=== PATIENT | female | born 1950 | race Caucasian/White ===

== ENCOUNTER 2019-05-09 09:13 | Inpatient (IN) | payer MEDICARE, BC ==
[2019-05-09] MEDS ORDERED: SODIUM CHLORIDE 0.9% 1,000 ML IV STA (09:37)
[2019-05-09] MEDS ORDERED: ASPIRIN 81 MG PO STA (09:37)
[2019-05-09] MEDS ORDERED: DILTIAZEM DRIP BOLUS FROM BAG 1 MG SOLN IV ONE (09:37)
[2019-05-09] MEDS ORDERED: HEPARIN SODIUM,PORCINE 5,000 UNIT/ML 1 ML VIAL IV PRN (09:42)
[2019-05-09] MEDS ORDERED: HEPARIN SODIUM,PORCINE 5,000 UNIT/ML 1 ML VIAL IV ONE (09:42)
--- NOTE | 2019-05-09 09:42 | ED ---
Chest Pain HPI - General Chief Complaint: Chest Pain Stated Complaint: Chest pain Time Seen by Provider: 05/09/19 09:20 Source: patient, RN notes reviewed Mode of arrival: ambulatory Limitations: no limitations - History of Present Illness Initial Comments: This 68-year-old female with a history of atrial fibrillation in the past who states she had the onset is morning at about 7:30 of palpitations or elevated heart rate and gas-like chest pain. States the pain was about 7/10 pressure like. She had palpitations she states her past 3 or 4 days but this is worse this morning he does state that she has similar episode 2005 which was diagnosed as atrial fibrillation she states that was worsened today's episode. No other modifying factors no other complaints at this time she does take metoprolol and has not missed any doses. MD Complaint: chest pain, other - Related Data Home Medications Medication Instructions Recorded Confirmed Abatacept [Orencia Clickject] 125 mg SQ Q30D 05/09/19 05/09/19 Ibuprofen [Advil] 200 mg PO Q8HR PRN 05/09/19 05/09/19 Metoprolol Tartrate [Lopressor] 25 mg PO DAILY@1300 05/09/19 05/09/19 Allergies Allergy/AdvReac Type Severity Reaction Status Date / Time levofloxacin [From Levaquin] Allergy Unknown Verified 05/09/19 13:07 sulfamethoxazole Allergy Swelling Verified 05/09/19 13:07 [From Bactrim] trimethoprim [From Bactrim] Allergy Swelling Verified 05/09/19 13:07 Review of Systems ROS Statement: Those systems with pertinent positive or pertinent negative responses have been documented in the HPI. ROS Other: All systems not noted in ROS Statement are negative. EKG Findings - EKG Results: EKG: interpreted by CHANTELLE (Rapid atrial fibrillation rate 163 QRS 82 QT since QTC to 46/405 ST-T abnormalities noted on EKG) Past Medical History Past Medical History: Atrial Fibrillation, Rheumatoid Arthritis (RA) History of Any Multi-Drug Resistant Organisms: None Reported Past Surgical History: Section Additional Past Surgical History / Comment(s): L leg vein stripping Past Psychological History: No Psychological Hx Reported Smoking Status: Never smoker Past Alcohol Use History: Daily Past Drug Use History: None Reported General Exam - General Exam Comments Initial Comments: This is a well-developed well-nourished awake alert oriented 3 female Limitations: no limitations General appearance: alert, anxious Head exam: Present: atraumatic, normocephalic, normal inspection Eye exam: Present: normal appearance, PERRL, EOMI. Absent: scleral icterus, conjunctival injection, periorbital swelling ENT exam: Present: normal exam, mucous membranes moist Neck exam: Present: normal inspection, full ROM, other (No stridor JVD or bruits). Absent: tenderness, meningismus, lymphadenopathy Respiratory exam: Present: normal lung sounds bilaterally. Absent: respiratory distress, wheezes, rales, rhonchi, stridor Cardiovascular Exam: Present: tachycardia, irregular rhythm. Absent: systolic murmur, diastolic murmur, rubs, gallop, clicks GI/Abdominal exam: Present: soft, normal bowel sounds. Absent: distended, tenderness, guarding, rebound, rigid Extremities exam: Present: normal inspection, full ROM, normal capillary refill. Absent: tenderness, pedal edema, joint swelling, calf tenderness Back exam: Present: normal inspection Neurological exam: Present: alert, oriented X3, CN II-XII intact Psychiatric exam: Present: normal affect, normal mood Skin exam: Present: warm, dry, intact, normal color. Absent: rash Course Vital Signs 05/09/19 05/09/19 05/09/19 09:20 10:40 11:10 Temperature 98 F Pulse Rate 126 H 146 H 152 H Respiratory 18 18 15 Rate Blood Pressure 132/81 118/97 114/55 O2 Sat by Pulse 99 98 95 Oximetry 05/09/19 05/09/19 05/09/19 11:30 12:00 13:00 Temperature Pulse Rate 151 H 151 H 151 H Respiratory 19 15 17 Rate Blood Pressure 102/64 107/91 107/87 O2 Sat by Pulse 97 96 96 Oximetry - Reevaluation(s) Reevaluation #1: 05/09/19 13:51 Evaluation reveals some improvement in her heart rate that she still demonstrating A. fib RVR. I did discuss the findings with the patient and family patient will be admitted Chest Pain MDM - [facility] Imaging shows no definite acute findings. Patient does have A. fib RVR. Patient hasn't placed on appropriate medication. I did discuss case with Dr. Herrera. Patient will be admitted with cardiology consultation. He did state that chest pain has resolved from most part as he heart rate has improved somewhat Critical Care Time Critical Care Time: Yes Critical Care Time: 39 minutes of critical care time which includes initial presentation with history physical labs x-rays review of old charting was available multiple reevaluation the patient to response to therapy discussion with the admitting physician admission orders and documentation the above Disposition Clinical Impression: Rapid atrial fibrillation, Chest pain Disposition: ADMITTED IP TO THIS HOSP Condition: Fair Referrals: Guy Bowman MD [Primary Care Provider] - 1-2 days
--- NOTE | 2019-05-09 10:02 | XR ---
EXAMINATION TYPE: XR chest 2V DATE OF EXAM: 05/09/2019 HISTORY: dysrhythmia. REFERENCE: NONE. FINDINGS: There is some scarring or atelectasis at both lung bases. The heart is mildly enlarged. Ple ural spaces are clear. IMPRESSION: 1. MILD CARDIOMEGALY. 2. SCARRING VERSUS ATELECTASIS, BOTH LUNG BASES.
[2019-05-09 10:04] LABS: Basophils % (A) 1 %; Eosinophils # (A) 0.3 k/uL (0-0.7); Eosinophils % (A) 6 %; HGB 13.7 gm/dL (11.4-16.0); Lymphocytes # (A) 1.6 k/uL (1.0-4.8); Lymphocytes % (A) 34 %; MCH 29.5 pg (25.0-35.0); MCHC 31.9 g/dL (31.0-37.0); MCV 92.6 fL (80.0-100.0); Mean Platelet Volume 7.4; Monocytes # (A) 0.3 k/uL (0-1.0); Monocytes % (A) 7 %; Neutrophils # (A) 2.4 k/uL (1.3-7.7); Neutrophils % (A) 50 %; Platelet Count 236 k/uL (150-450); RBC 4.65 m/uL (3.80-5.40); RDW 13.1 % (11.5-15.5); WBC 4.8 k/uL (3.8-10.6)
[2019-05-09 10:11] LABS: INR 0.9 (<1.2); Partial Thromboplastin Time 22.7 sec (22.0-30.0); Prothrombin Time 9.6 sec (9.0-12.0)
[2019-05-09 10:25] LABS: ALT 27 U/L (9-52); AST 22 U/L (14-36); African American GFR (CKD) >90 (>60 ml/min/1.73 sqM); Albumin 4.2 g/dL (3.5-5.0); Alkaline Phosphatase 66 U/L (38-126); Anion Gap 10 mmol/L; Blood Urea Nitrogen 20 mg/dL (7-17); Calcium 9.8 mg/dL (8.4-10.2); Carbon Dioxide 22 mmol/L (22-30); Chloride 110 mmol/L (98-107); Creatine Kinase 136 U/L (30-135); Glucose 113 mg/dL (74-99); Magnesium 1.7 mg/dL (1.6-2.3); Non-African American GFR(CKD) >90 (>60 ml/min/1.73 sqM); Potassium 3.7 mmol/L (3.5-5.1); Sodium 142 mmol/L (137-145); Total Bilirubin 0.7 mg/dL (0.2-1.3); Total Protein 7.2 g/dL (6.3-8.2)
[2019-05-09] MEDS: DILTIAZEM 125 MG in SODIUM CHLORIDE 0.9% 100 ML IV SCH (10:29)
[2019-05-09] MEDS ORDERED: SODIUM CHLORIDE 0.9% 500 ML 500 ML IV ONE (10:30)
[2019-05-09] MEDS: HEPARIN SOD,PORK IN 0.45% NACL 25,000 UNIT in 0.45% NACL 1 250ML.BAG IV SCH (11:39)
[2019-05-09] MEDS ORDERED: NALOXONE 0.4 MG/ML 1 ML VIAL IV PRN (13:56)
[2019-05-09] MEDS ORDERED: IBUPROFEN 200 MG TAB PO PRN (13:57)
[2019-05-09] MEDS ORDERED: SODIUM CHLORIDE 0.9% 1,000 ML IV ONE (15:18)
[2019-05-09] MEDS ORDERED: ACETAMINOPHEN TAB 325 MG TAB PO PRN (15:19)
--- NOTE | 2019-05-09 15:23 | P.HPIM ---
History of Present Illness H&P Date: 05/09/19 Chief Complaint: Chest pain or heart racing The patient is a 68-year-old female with a past medical history of atrial fibrillation on beta won therapy, rheumatoid arthritis on IV Arencia infusions, GERD that presents to the ER via private vehicle with chief complaint of feeling like her heart is racing and chest pain. Apparently the patient woke up today and felt that her heart was pounding and racing, she had associated 7 out of 10 chest pressure without radiation. The patient also reported some lightheadedness and dizziness, but denied any syncopal symptoms. The patient denied any diaphoresis or shortness of breath. The patient reported that she w as in her usual state of health up until 2 weeks ago where she had a runny nose sore throat and sinus congestion, she reports episodes of palpitations over the last 2 days. The patient had a nonproductive cough she denies subjective fevers or chills, she reports episodes of pyrosis that is relieved by Tums. She reports to drinking 3 cups of coffee daily The patient reports a history of being in A. fib several years ago and was started on beta won therapy with metoprolol for which she notes compliance. In the ER she had admission labs CBC was normal PT INR was 9.6 and 0.9, serum sodium was 142 potassium is 3.7, BUN 20, creatinine 0.69, troponin was 0.026, TSH was 1.97. Chest x-ray showed mild cardiomegaly with scarring versus atelectasis EKG showed atrial fibrillation with RVR with a rate of 163 with some T-wave abnormalities. The patient was started on IV Cardizem and heparin and recommended for admission Review of Systems Pertinent positives per HPI, all other review of systems are otherwise negative Past Medical History Past Medical History: Atrial Fibrillation, Rheumatoid Arthritis (RA) Additional Past Medical History / Comment(s): AFIB 2007 History of Any Multi-Drug Resistant Organisms: None Reported Past Surgical History: Section Additional Past Surgical History / Comment(s): L leg vein stripping, foot surgery, left thumb surgery Past Anesthesia/Blood Transfusion Reactions: No Reported Reaction Past Psychological History: No Psychological Hx Reported, Depression Smoking Status: Never smoker Past Alcohol Use History: Occasional Past Drug Use History: None Reported - Past Family History Mother Family Medical History: Cancer Father Additional Family Medical History / Comment(s): gastrointestinal issues resulting in Medications and Allergies Home Medications Medication Instructions Recorded Confirmed Type Ibuprofen [Advil] 200 mg PO Q8HR PRN 05/09/19 05/09/19 History Metoprolol Tartrate [Lopressor] 25 mg PO DAILY@1300 05/09/19 05/09/19 History Allergies Allergy/AdvReac Type Severity Reaction Status Date / Time sulfamethoxazole Allergy Swelling Verified 05/09/19 13:07 [From Bactrim] trimethoprim [From Bactrim] Allergy Swelling Verified 05/09/19 13:07 levofloxacin [From Levaquin] AdvReac Unknown Verified 05/09/19 15:10 Physical Exam Vitals: Vital Signs Temp Pulse Pulse Resp BP BP Pulse Ox 05/09/19 14:18 98.5 F 87 18 99/75 95 05/09/19 14:00 135 H 14 85/68 97 05/09/19 13:30 156 H 13 95/80 95 05/09/19 13:00 151 H 17 107/87 96 05/09/19 12:00 151 H 15 107/91 96 05/09/19 11:30 151 H 19 102/64 97 05/09/19 11:10 152 H 15 114/55 95 05/09/19 10:40 146 H 18 118/97 98 05/09/19 09:20 98 F 126 H 18 132/81 99 Intake and Output 05/09/19 05/09/19 05/09/19 06:59 14:59 22:59 Intake Total 14.917 Balance 14.917 Intake: Intake, IV Titration 14.917 Amount Diltiazem 125 mg In 14.917 Sodium Chloride 0.9% 100 ml @ 5 MG/HR 5 mls/hr IV .Q24H [facility] Rx#:[id number] Other: Weight 77.111 kg Constitutional: No acute distress, conversant, pleasant Eyes: Anicteric sclerae, moist conjunctiva, no lid-lag, PERRLA ENMT: NC/AT,Oropharynx clear, no erythema, exudates Neck:Supple, FROM, no masses, or JVD, No carotid bruits; No thyromegaly Lungs: Clear to auscultation, Clear to percussion, Normal respiratory effort, no accessory muscle use Cardiovascular: Irregularly irregular, No murmurs, gallops, or rubs no peripheral edema Abdominal: Soft Nontender, nom distended, no guarding, no rebound or rigidity, Normoactive bowel sounds No hepatomegaly, No splenomegaly, No palpable mass No abdominal wall hernia noted Skin: Normal temperature, tone, texture, turgor, No induration No subcutaneous nodules, No rash, lesions, No ulcers Extremities:No digital cyanosis No clubbing, Pedal pulses intact and symmetrical Radial pulses intact and symmetrical Normal gait and station, No calf tenderness Psychiatric: Alert and oriented to person, place and time, Appropriate affect Intact judgement Neuro: Muscles Strength 5/5 in all 4 extremities, Sensation to light touch grossly present throughout, Cranial nerves II-XII grossly intact. No focal sensory deficits Results CBC & Chem 7: 05/09/19 09:44 05/09/19 09:44 Labs: Abnormal Lab Results - Last 24 Hours (Table) 05/09/19 Range/Units 09:44 Chloride 110 H (98-107) mmol/L BUN 20 H (7-17) mg/dL Glucose 113 H (74-99) mg/dL Creatine Kinase 136 H (30-135) U/L Thrombosis Risk Factor Assmnt - Choose All That Apply Any of the Below Risk Factors Present?: Yes Each Risk Factor Represents 2 Points: Age 61-74 years Thrombosis Risk Factor Assessment Total Risk Factor Score: 2 Thrombosis Risk Factor Assessment Level: Low Risk Assessment and Plan Assessment: Atrial fibrillation with RVR Chest pain Rheumatoid arthritis GERD Plan: The patient is placed in observation anticipate a less than 2 midnight stay with A. tomy with RVR with a rate of 165 after presenting with palpitations. We'll continue the patient's on IV Cardizem drip and IV heparin, the patient's blood p ressure is borderline we'll bolus with 1 L normal saline and continue the patient's orders, TSH is normal check echocardiogram with plans for cardiology consultation. Continue chest pain orders sequential troponins, aspirin check lipid panel in the morning. We'll continue to monitor her clinical course closely. CODE STATUS: Full code Discussed plan of care with: Patient and Medical decision maker: Prophylaxis: On IV heparin and oral Protonix
[2019-05-09] MEDS: SODIUM CHLORIDE 0.9% 1,000 ML IV SCH (15:37)
[2019-05-09] MEDS: ATORVASTATIN 80 MG TAB PO SCH (20:56)
[2019-05-09] MEDS: METOPROLOL TARTRATE 50 MG TAB PO SCH (20:56)
[2019-05-10] MEDS: DILTIAZEM 125 MG in SODIUM CHLORIDE 0.9% 100 ML IV SCH (02:02)
[2019-05-10] MEDS: SODIUM CHLORIDE 0.9% 1,000 ML IV SCH ×2 (02:30→12:03)
[2019-05-10 06:23] LABS: Basophils % (A) 1 %; Eosinophils # (A) 0.2 k/uL (0-0.7); Eosinophils % (A) 4 %; HCT 34.3 % (34.0-46.0); HGB 11.2 gm/dL (11.4-16.0); Lymphocytes % (A) 38 %; MCH 30.3 pg (25.0-35.0); MCHC 32.6 g/dL (31.0-37.0); Mean Platelet Volume 7.6; Monocytes # (A) 0.3 k/uL (0-1.0); Monocytes % (A) 6 %; Neutrophils # (A) 2.6 k/uL (1.3-7.7); Neutrophils % (A) 49 %; Platelet Count 188 k/uL (150-450); RBC 3.69 m/uL (3.80-5.40); RDW 13.3 % (11.5-15.5); WBC 5.3 k/uL (3.8-10.6)
[2019-05-10] MEDS: PANTOPRAZOLE 40 MG TABLET PO SCH (06:29)
[2019-05-10 06:34] LABS: Cholesterol 144 mg/dL (<200); HDL Cholesterol 54 mg/dL (40-60); LDL Cholesterol,Calculated 75 mg/dL (0-99); Triglycerides 76 mg/dL (<150)
[2019-05-10] MEDS: METOPROLOL TARTRATE 50 MG TAB PO SCH ×2 (08:33→22:26)
[2019-05-10] MEDS: HEPARIN SOD,PORK IN 0.45% NACL 25,000 UNIT in 0.45% NACL 1 250ML.BAG IV SCH (08:37)
[2019-05-10] MEDS ORDERED: ASPIRIN 81 MG PO SCH (09:00)
[2019-05-10] MEDS: APIXABAN 5 MG TAB PO SCH ×2 (12:02→22:26)
[2019-05-10] MEDS ORDERED: METOPROLOL TARTRATE 25 MG TAB PO SCH (13:00)
--- NOTE | 2019-05-10 13:16 | P.PN ---
Subjective Progress Note Date: 05/10/19 Patient is seen and examined at bedside doing well denies any sick feelings of palpitations, converted to normal sinus rhythm overnight, echocardiogram ordered pending for tomorrow. The troponins trended up to 0.237 and 0.299. Blood pressure is stable Objective - Vital Signs Vital signs: Vital Signs Temp 97.9 F 05/10/19 04:55 Pulse 64 05/10/19 04:55 Resp 20 05/10/19 04:55 BP 122/74 05/10/19 04:55 Pulse Ox 95 05/10/19 04:55 Intake & Output 05/09/19 05/10/19 05/10/19 18:59 06:59 18:59 Intake Total 712.274 6387.083 173.505 Balance 344.245 9559.083 173.505 Weight 77.111 kg 78.3 kg Intake: IV 1359 Diltiazem 125 mg In 40 Sodium Chloride 0.9% 100 ml @ 5 MG/HR 5 mls/hr IV .Q24H [facility] Rx#:[id number] Sodium Chloride 0.9% 1, 320 000 ml @ 80 mls/hr IV . [id number] [facility] Rx#:[id number] Sodium Chloride 0.9% 1, 999 000 ml @ 999 mls/hr IV . Q1H1M [facility] Rx#:[id number] Intake, IV Titration 70.127 110.083 173.505 Amount Diltiazem 125 mg In 14.917 110.083 Sodium Chloride 0.9% 100 ml @ 5 MG/HR 5 mls/hr IV .Q24H [facility] Rx#:[id number] Heparin Sod,Pork in 0.45% 55.21 173.505 NaCl 25,000 unit In 0.45 % NaCl 1 250ml.bag @ 12 UNITS/KG/HR 9.253 mls/hr IV .Q24H [facility] Rx#: [id number] Oral 240 120 Other: Voiding Method Toilet # Voids 1 - Exam Constitutional: No acute distress, conversant, pleasant Eyes: Anicteric sclerae, moist conjunctiva, no lid-lag, PERRLA ENMT: NC/AT,Oropharynx clear, no erythema, exudates Neck:Supple, FROM, no masses, or JVD, No carotid bruits; No thyromegaly Lungs: Clear to auscultation, Clear to percussion, Normal respiratory effort, no accessory muscle use Cardiovascular: Heart regular in rate and rhythm, No murmurs, gallops, or rubs no peripheral edema Abdominal: Soft Nontender, nom distended, no guarding, no rebound or rigidity, Normoactive bowel sounds No hepatomegaly, No splenomegaly, No palpable mass No abdominal wall hernia noted Skin: Normal temperature, tone, texture, turgor, No induration No subcutaneous nodules, No rash, lesions, No ulcers Extremities:No digital cyanosis No clubbing, Pedal pulses intact and symmetrical Radial pulses intact and symmetrical Normal gait and station, No calf tenderness Psychiatric: Alert and oriented to person, place and time, Appropriate affect Intact judgement Neuro: Muscles Strength 5/5 in all 4 extremities, Sensation to light touch grossly present throughout, Cranial nerves II-XII grossly intact. No focal sensory deficits - Labs CBC & Chem 7: 05/10/19 05:54 05/09/19 09:44 Labs: Abnormal Lab Results - Last 24 Hours (Table) 05/09/19 05/09/19 05/09/19 Range/Units 09:44 16:13 16:13 RBC (3.80-5.40) m/uL Hgb (11.4-16.0) gm/dL APTT 31.7 H (22.0-30.0) sec Chloride 110 H (98-107) mmol/L BUN 20 H (7-17) mg/dL Glucose 113 H (74-99) mg/dL Creatine Kinase 136 H (30-135) U/L Troponin I 0.237 H* (0.000-0.034) ng/mL 05/09/19 05/09/19 05/10/19 Range/Units 20:42 23:10 05:54 RBC 3.69 L (3.80-5.40) m/uL Hgb 11.2 L (11.4-16.0) gm/dL APTT 69.8 H (22.0-30.0) sec Chloride (98-107) mmol/L BUN (7-17) mg/dL Glucose (74-99) mg/dL Creatine Kinase (30-135) U/L Troponin I 0.299 H* (0.000-0.034) ng/mL 12/08/19 Range/Units 05:54 RBC (3.80-5.40) m/uL Hgb (11.4-16.0) gm/dL APTT 64.5 H (22.0-30.0) sec Chloride (98-107) mmol/L BUN (7-17) mg/dL Glucose (74-99) mg/dL Creatine Kinase (30-135) U/L Troponin I (0.000-0.034) ng/mL Assessment and Plan Assessment: Atrial fibrillation with RVR * Converted to normal sinus rhythm * Continue with beta won metoprolol, initiated on DOAC with Eliquis * TSH normal echocardiogram pending Chest pain * Troponins elevated as noted * Continue with aspirin, statin therapy * Cardiology consult pending, possibly needing heart catheterization during this hospitalization Rheumatoid arthritis * We will resume weekly (infusions outpatient GERD * Continue PPI therapy Disposition * Anticipated discharge tomorrow
--- NOTE | 2019-05-10 14:04 | CONS ---
CONSULTATION Mrs. Knox is a 68-year-old female who is seen for cardiac evaluation and atrial fibrillation. This patient gives a history that yesterday morning she was sitting and she suddenly felt her heart was racing, felt heart palpitations and then she had some mild shortness of breath and chest pressure. She did not have any pleuritic chest pain. Did not have any sweating. The patient gives a history that she had been having some palpitations for last 3-4 days but it got worse this morning. She does have a past history of atrial fibrillation in 2007. She is not on any blood thinner. The patient was initially found to be in atrial fibrillation with a rapid ventricular response. She was started on Cardizem drip and subsequently converted to the normal sinus rhythm. The patient denies any history of diabetes, hypertension, angina. There is no previous history of myocardial infarction. The patient usually has 2 or 3 cups of coffee. Denies any history of thyroid problems. HOME MEDICATIONS: Included Orencia, Advil, metoprolol. PAST MEDICAL HISTORY: Includes a history of atrial fibrillation, rheumatoid arthritis, and . PHYSICAL EXAMINATION: At present reveals a 68-year-old female who does not appear to be in any acute distress at present. In the emergency room, patient's heart rate was in the range of 130-150. Oxygen saturation was 98%. Respiratory rate was 18. The patient is comfortable now. Heart rate is 60 per minute, blood pressure is 128/64 mmHg. HEENT examination is negative. Neck is supple. There is no increase in jugular venous pressure. Both the carotid pulses are felt. There is no bruit. Chest is symmetrical. Heart the PMI is not felt. First and second heart sounds are normal. Lungs are clinically clear to auscultation and percussion. Abdomen is negative. Extremities: Peripheral pulsations are 2+. Initial EKG showed evidence of atrial fibrillation with a rapid ventricular response and ST-T changes possibly secondary to atrial fibrillation with RVR. Repeat EKG is normal. The patient had a minimally elevated troponin of 0.2 and 0.29. TSH is 1.97. The patient's chest x-ray is normal. FINAL IMPRESSION: This patient came with paroxysmal atrial fibrillation with rapid ventricular response. He is now converted to the normal sinus rhythm. Patient did not have any symptoms suggestive of acute coronary syndrome. There is a minimal elevation in the troponin which could be secondary to atrial fibrillation with RVR. We will continue the patient on metoprolol, Eliquis 5 mg b.i.d. is started for the stroke prevention. Echo and Doppler study will be done. If the patient remains stable, she can be discharged home tomorrow. We will recommend to have her stress test as an outpatient. HEMANTH / PRADEEPN: [id number] /
[2019-05-10] MEDS: ATORVASTATIN 80 MG TAB PO SCH (22:26)
[2019-05-11 06:22] LABS: Basophils % (A) 1 %; Eosinophils # (A) 0.4 k/uL (0-0.7); Eosinophils % (A) 6 %; HGB 11.7 gm/dL (11.4-16.0); Lymphocytes # (A) 1.9 k/uL (1.0-4.8); Lymphocytes % (A) 34 %; MCH 30.3 pg (25.0-35.0); MCHC 32.6 g/dL (31.0-37.0); Mean Platelet Volume 8.9; Monocytes # (A) 0.4 k/uL (0-1.0); Monocytes % (A) 7 %; Neutrophils # (A) 2.9 k/uL (1.3-7.7); Neutrophils % (A) 50 %; Platelet Count 204 k/uL (150-450); RBC 3.87 m/uL (3.80-5.40); RDW 13.2 % (11.5-15.5); WBC 5.7 k/uL (3.8-10.6)
[2019-05-11] MEDS: SODIUM CHLORIDE 0.9% 1,000 ML IV SCH (06:40)
[2019-05-11] MEDS: PANTOPRAZOLE 40 MG TABLET PO SCH (06:42)
[2019-05-11 06:45] VITALS: RESP 18
[2019-05-11] MEDS: METOPROLOL TARTRATE 50 MG TAB PO SCH (09:05)
[2019-05-11] MEDS: APIXABAN 5 MG TAB PO SCH (09:05)
[2019-05-11] MEDS: DILTIAZEM 125 MG in SODIUM CHLORIDE 0.9% 100 ML IV SCH (09:05)
--- NOTE | 2019-05-11 10:43 | ECHOF ---
Referral Reason:afib with rvr MEASUREMENTS -------- HEIGHT: 170.2 cm WEIGHT: 77.1 kg BP: RVIDd: 2.9 cm (< 3.3) IVSd: 1.0 cm (0.6 - 1.1) LVIDd: 3.6 cm (3.9 - 5.3) LVPWd: 1.4 cm (0.6 - 1.1) IVSs: 1.9 cm LVIDs: 1.6 cm LVPWs: 1.6 cm LAESV Index (A-L): 26.12 ml/m Ao Diam: 3.2 cm (2.0 - 3.7) AV Cusp: 2.0 cm (1.5 - 2.6) LA Diam: 3.0 cm (2.7 - 3.8) MV EXCURSION: 13.536 mm (> 18.000) MV EF SLOPE: 98 mm/s (70 - 150) EPSS: 1.1 cm MV E Branden: 0.94 m/s MV DecT: 173 ms MV A Branden: 0.56 m/s MV E/A Ratio: 1.68 RAP: 20.00 mmHg RVSP: 47.77 mmHg TAPSE: 31.58 mm FINDINGS -------- Sinus rhythm. This was a technically good study. The left ventricular size is normal. There is mild concentric left ventricular hypertrophy. Overa ll left ventricular systolic function is normal with, an EF between 55 - 60 %. The diastolic fillin g pattern is normal for the age of the patient 11.97. The right ventricle is normal in size. The right ventricular systolic function is normal. The left atrial size is normal. Normal LA size by volume 22+/-6 ml/m2. The right atrial size is normal. The aortic valve is trileaflet and appears structurally normal. The mitral valve is normal. Moderate mitral regurgitation is present. The tricuspid valve appears structurally normal. [id number] tricuspid regurgitation present. There is mild to moderate pulmonary hypertension. The right ventricular systolic pressure, as sally sured by Doppler, is 47.77mmHg. There is no pulmonic regurgitation present. 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 There is no pericardial effusion. CONCLUSIONS -------- 1. Sinus rhythm. 2. This was a technically good study. 3. The left ventricular size is normal. 4. There is mild concentric left ventricular hypertrophy. 5. Overall left ventricular systolic function is normal with, an EF between 55 - 60 %. 6. The diastolic filling pattern is normal for the age of the patient 11.97 7. The right ventricle is normal in size. 8. The right ventricular systolic function is normal. 9. The left atrial size is normal. 10. Normal LA size by volume 22+/-6 ml/m2. 11. The right atrial size is normal. 12. The aortic valve is trileaflet and appears structurally normal. 13. The mitral valve is normal. 14. Moderate mitral regurgitation is present. 15. The tricuspid valve appears structurally normal. 16. [id number] tricuspid regurgitation present. 17. There is mild to moderate pulmonary hypertension. 18. The right ventricular systolic pressure, as measured by Doppler, is 47.77mmHg. 19. There is no pulmonic regurgitation present. 20. 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 21. The inferior vena cava is dilated with no significant inspiratory collapse which is consistent es timated right atrial pressure of >20 mmHg. 22. There is no pericardial effusion. SUBWAY TRAIN DRIVER: Emily Morris RDCS
[2019-05-11 11:10] VITALS: TEMP 97
[2019-05-11 13:00] VITALS: BP 173/82; PULSE 63
--- NOTE | 2019-05-11 13:10 | PN ---
PROGRESS NOTE This patient was admitted with atrial fibrillation. The patient is doing well. Remains in normal sinus rhythm. Denies any chest pain or shortness of breath. Patient's echocardiogram reveals normal left ventricular systolic function. Blood pressure is 140/72 mmHg. First and second heart sounds are normal. Lungs are clinically clear to auscultation and percussion. The patient will be discharged home on Eliquis and Lipitor and we will follow up with a stress test as outpatient. MMODL / IJN: [id number] /
--- NOTE | 2019-05-11 15:46 | P.DS ---
Providers Date of admission: 05/09/19 13:56 Attending physician: Nayana Kee DO Consults: 05/09/19 13:56 Consult Physician Routine Consulting Provider: Yoly Mendez Consult Reason/Comments: Rapid atrial fibrillation, chest pain Do you want consulting provider notified?: Yes Primary care physician: Guy Bowman Hospital Course: Discharge date: 05/11/2019 Admission diagnosis palpitations and chest pain Discharge diagnosis 1. Paroxysmal atrial fibrillation with RVR 2. Chest pain except slightly. 3.Elevated troponin Consultants: Dr. Hardy from cardiology Studies done: Echocardiogram showing EF of 55% without significant bilateral abnormalities Normal TSH History of present illness: This is a very pleasant 68-year-old female who has history of migraines and remote history of atrial fibrillation. Patient was in critical state of health when suddenly developed palpitations and chest discomfort for shortness of breath. She came to emergency department if A. FIB with RVR. Patient was started on Cardizem drip and heparin drip and admitted for further lotion. Patient was admitted for further management Hospital course. With above treatment patient converted to normal sinus rhythm. Her general blood work was without significant abnormalities. Her troponin showed elevation of 0.227 and 0.299. With conversion to normal sinus rhythm all patient's symptoms resolved. Cardiology evaluated the patient. TSH was normal echocardiogram with preserved EF no significant valvular abnormalities. Patient was transitioned to oral metoprolol 50 mg twice a day and started on Eliquis. She was also started on Lipitor as well. On the day of discharge she was doing very well and remained in normal sinus rhythm cardiology cleared the patient for discharge Discharge medications: Eliquis 5 mg twice a day Metoprolol 50 mg twice a day Atorvastatin 40 mg daily Tylenol when necessary for headaches I had a detailed discussion with the patient her and explained the kelli ent cannot be on any NSAIDs anymore she used to have a habits to take Motrin for her headaches. She will continue with effusions for her rheumatoid arthritis otherwise. She will follow-up with cardiology service in 2 weeks and primary care physician in a few days. On the examination physical exam showed that the lungs were clear to auscultation, cardiovascular was regular rhythm and rate without any significant murmurs, abdomen soft nontender nondistended, peripheral extremities without any peripheral edema 40 minutes was spent on this discharge Patient Condition at Discharge: Good Plan - Discharge Summary Discharge Rx Participant: No New Discharge Prescriptions: New Apixaban [Eliquis] 5 mg PO BID #60 tab Rosuvastatin Calcium [Ezallor Sprinkle] 40 mg PO DAILY #30 cap.sprink Metoprolol Tartrate [Lopressor] 50 mg PO BID #60 tab Discontinued Ibuprofen [Advil] 200 mg PO Q8HR PRN PRN Reason: Pain Metoprolol Tartrate [Lopressor] 25 mg PO DAILY@1300 Discharge Medication List Apixaban [Eliquis] 5 mg PO BID #60 tab 05/11/19 [Rx] Metoprolol Tartrate [Lopressor] 50 mg PO BID #60 tab 05/11/19 [Rx] Rosuvastatin Calcium [Ezallor Sprinkle] 40 mg PO DAILY #30 cap.sprink 05/11/19 [Rx] Follow up Appointment(s)/Referral(s): Guy Bowman MD [Primary Care Provider] - 05/15/19 1:45 pm (Saturday) Won Hardy MD [STAFF PHYSICIAN] - 1 Week (Spoke to hospital receptionist. Office will call with appointment time) Patient Instructions/Handouts: A-fib (Atrial Fibrillation) (DC), Safe Use of Anticoagulants (DC) Activity/Diet/Wound Care/Special Instructions: Call and request a benefits investigation regarding Eliquis cost. Discharge Disposition: HOME SELF-CARE
== END 2019-05-11 16:28 | disposition home or self-care (01) | DRG 310 ==
LOC: EC 09:13 → 3SCARD 13:56
PROVIDERS: ADMIT Internal Medicine; ATTEND Internal Medicine
DX: I48.0 Paroxysmal atrial fibrillation (principal); R07.89 Other chest pain; R79.89 Other specified abnormal findings of blood chemistry; K21.9 Gastro-esophageal reflux disease without esophagitis; M06.9 Rheumatoid arthritis, unspecified; Z79.899 Other long term (current) drug therapy; Z86.69 Personal history of other diseases of the nervous system and sense organs; Z98.891 History of uterine scar from previous surgery; Z98.890 Other specified postprocedural states; Z88.1 Allergy status to other antibiotic agents; Z88.2 Allergy status to sulfonamides
CPT/HCPCS: 36415; 71046; 80053; 80061; 82550; 83735; 84443; 84484; 85025; 85610; 85730; 93005; 93306; 96365; 96366; 96368; 96376; 99291

== ENCOUNTER 2021-02-09 22:35 | Emergency (ER) | payer MEDICARE, BC ==
[2021-02-09 23:29] LABS: Basophils % (A) 1 %; Eosinophils # (A) 0.2 k/uL (0-0.7); Eosinophils % (A) 3 %; HCT 40.3 % (34.0-46.0); HGB 13.7 gm/dL (11.4-16.0); Lymphocytes # (A) 1.7 k/uL (1.0-4.8); Lymphocytes % (A) 25 %; MCH 31.9 pg (25.0-35.0); MCV 93.9 fL (80.0-100.0); Mean Platelet Volume 8.5; Monocytes # (A) 0.4 k/uL (0-1.0); Monocytes % (A) 5 %; Neutrophils # (A) 4.4 k/uL (1.3-7.7); Neutrophils % (A) 65 %; Platelet Count 193 k/uL (150-450); RDW 12.7 % (11.5-15.5); WBC 6.8 k/uL (3.8-10.6)
--- NOTE | 2021-02-09 23:29 | ED ---
General Adult HPI - General Chief complaint: Arrhythmia/Palpitations Stated complaint: not feeling well Time Seen by Provider: 02/09/21 23:03 Source: patient Mode of arrival: wheelchair Limitations: no limitations - History of Present Illness Initial comments: This patient is a 70-year-old woman who presents with a constellation of symptoms is been going on since the morning. She states she has not been feeling well all day. She noticed that her blood pressure has also been running higher than usual. She checked it multiple times today including the last time just prior to coming here and it was 170/90. Patient states that by not feeling well she noticed she was having some left flank pain. It did seem to move around to the left lower quadrant later in the day. When she had noted the pain she took some Keflex that she had been prescribed 2 weeks ago for urinary tract infection. Patient denies having dysuria though she did have some hesitancy earlier. No hematuria noted. She has not had fever or chills. No chest pain or dyspnea though tonight she did note she had some palpitations when she had walked outside. Those have resolved by the time she has arrived here. Onset/Timin -: days(s) Location: left (Flank) Radiation: other (Groin) Quality: dull Consistency: intermittent Improves with: none Worsens with: none - Related Data Home Medications Medication Instructions Recorded Confirmed Acetaminophen Tab [Tylenol Tab] 500 mg PO Q6H PRN 02/09/21 02/09/21 Ergocalciferol (Vitamin D2) 1,250 mcg PO WEEKLY 02/09/21 02/09/21 [Drisdol (50,000 Iu)] Estradiol Cream [Estrace Cream 1 gm VAGINAL DAILY 02/09/21 02/09/21 0.01%] Rosuvastatin Calcium [Crestor] 5 mg PO DAILY 02/09/21 02/09/21 Previous Rx's Medication Instructions Recorded Apixaban [Eliquis] 5 mg PO BID #60 tab 05/11/19 Metoprolol Tartrate [Lopressor] 50 mg PO BID #60 tab 05/11/19 Allergies Allergy/AdvReac Type Severity Reaction Status Date / Time sulfamethoxazole Allergy Swelling Verified 02/09/21 23:25 [From Bactrim] trimethoprim [From Bactrim] Allergy Swelling Verified 02/09/21 23:25 levofloxacin [From Levaquin] AdvReac Unknown Verified 02/09/21 23:25 Review of Systems ROS Statement: Those systems with pertinent positive or pertinent negative responses have been documented in the HPI. ROS Other: All systems not noted in ROS Statement are negative. Constitutional: Denies: fever, chills, weakness Respiratory: Denies: cough, dyspnea Cardiovascular: Reports: palpitations. Denies: chest pain, edema, syncope Gastrointestinal: Reports: as per HPI, abdominal pain. Denies: nausea, vomiting, diarrhea, constipation Genitourinary: Denies: dysuria, frequency, hematuria Musculoskeletal: Denies: back pain Skin: Denies: rash Neurological: Denies: headache, weakness, numbness Psychiatric: Reports: anxiety Past Medical History Past Medical History: Atrial Fibrillation, Hypertension, Rheumatoid Arthritis (RA) Additional Past Medical History / Comment(s): AFIB 2008,thoracoabdominal aortic aneurysm History of Any Multi-Drug Resistant Organisms: None Reported Past Surgical History: Section Additional Past Surgical History / Comment(s): L leg vein stripping, foot surgery, left thumb surgery Past Anesthesia/Blood Transfusion Reactions: No Reported Reaction Past Psychological History: No Psychological Hx Reported, Depression Smoking Status: Never smoker Past Alcohol Use History: Occasional Past Drug Use History: None Reported - Past Family History Mother Family Medical History: Cancer Father Additional Family Medical History / Comment(s): gastrointestinal issues resulting in General Exam Limitations: no limitations General appearance: alert, in no apparent distress Head exam: Present: atraumatic, normocephalic Eye exam: Present: normal appearance. Absent: scleral icterus, conjunctival injection ENT exam: Present: normal oropharynx Neck exam: Present: normal inspection Respiratory exam: Present: normal lung sounds bilaterally. Absent: respiratory distress, wheezes, rales, rhonchi, stridor Cardiovascular Exam: Present: regular rate, normal rhythm, normal heart sounds. Absent: systolic murmur, diastolic murmur, rubs, gallop GI/Abdominal exam: Present: soft. Absent: distended, tenderness, guarding, lynne ound, rigid, mass, pulsatile mass Extremities exam: Present: normal inspection, normal capillary refill. Absent: pedal edema, calf tenderness Back exam: Present: normal inspection, CVA tenderness (L). Absent: CVA tenderness (R) Neurological exam: Present: alert Skin exam: Present: warm, dry, intact, normal color. 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30 (3.80-5.40) m/uL Hgb 13.7 (11.4-16.0) gm/dL Hct 40.3 (34.0-46.0) % MCV 93.9 (80.0-100.0) fL MCH 31.9 (25.0-35.0) pg MCHC 34.0 (31.0-37.0) g/dL RDW 12.7 (11.5-15.5) % Plt Count 193 (150-450) k/uL MPV 8.5 Neutrophils % 65 % Lymphocytes % 25 % Monocytes % 5 % Eosinophils % 3 % Basophils % 1 % Neutrophils # 4.4 (1.3-7.7) k/uL Lymphocytes # 1.7 (1.0-4.8) k/uL Monocytes # 0.4 (0-1.0) k/uL Eosinophils # 0.2 (0-0.7) k/uL Basophils # 0.0 (0-0.2) k/uL PT 10.1 (9.0-12.0) sec INR 0.9 (<1.2) APTT 22.4 (22.0-30.0) sec Sodium 138 (137-145) mmol/L Potassium 3.9 (3.5-5.1) mmol/L Chloride 108 H (98-107) mmol/L Carbon Dioxide 21 L (22-30) mmol/L Anion Gap 9 mmol/L BUN 15 (7-17) mg/dL Creatinine 0.64 (0.52-1.04) mg/dL Est GFR (CKD-EPI)AfAm >90 (>60 ml/min/1.73 sqM) Est GFR (CKD-EPI)NonAf >90 (>60 ml/min/1.73 sqM) Glucose 104 H (74-99) mg/dL Calcium 9.8 (8.4-10.2) mg/dL Magnesium 1.9 (1.6-2.3) mg/dL Total Bilirubin 0.4 (0.2-1.3) mg/dL AST 22 (14-36) U/L ALT 15 (4-34) U/L Alkaline Phosphatase 70 (38-126) U/L Troponin I (0.000-0.034) ng/mL Total Protein 7.0 (6.3-8.2) g/dL Albumin 4.2 (3.5-5.0) g/dL TSH 1.400 (0.465-4.680) mIU/L Urine Color Urine Appearance (Clear) Urine pH (5.0-8.0) Ur Specific [place] (1.001-1.035) Urine Protein (Negative) Urine Glucose (UA) (Negative) Urine Ketones (Negative) Urine Blood (Negative) Urine Nitrite (Negative) Urine Bilirubin (Negative) Urine Urobilinogen (<2.0) mg/dL Ur Leukocyte Esterase (Negative) Urine RBC (0-5) /hpf Urine WBC (0-5) /hpf Ur Squamous Epith Cells (0-4) /hpf 02/09/21 02/10/21 Range/Units 23:15 00:00 WBC (3.8-10.6) k/uL RBC (3.80-5.40) m/uL Hgb (11.4-16.0) gm/dL Hct (34.0-46.0) % MCV (80.0-100.0) fL MCH (25.0-35.0) pg MCHC (31.0-37.0) g/dL RDW (11.5-15.5) % Plt Count (150-450) k/uL MPV Neutrophils % % Lymphocytes % % Monocytes % % Eosinophils % % Basophils % % Neutrophils # (1.3-7.7) k/uL Lymphocytes # (1.0-4.8) k/uL Monocytes # (0-1.0) k/uL Eosinophils # (0-0.7) k/uL Basophils # (0-0.2) k/uL PT (9.0-12.0) sec INR (<1.2) APTT (22.0-30.0) sec Sodium (137-145) mmol/L Potassium (3.5-5.1) mmol/L Chloride (98-107) mmol/L Carbon Dioxide (22-30) mmol/L Anion Gap mmol/L BUN (7-17) mg/dL Creatinine (0.52-1.04) mg/dL Est GFR (CKD-EPI)AfAm (>60 ml/min/1.73 sqM) Est GFR (CKD-EPI)NonAf (>60 ml/min/1.73 sqM) Glucose (74-99) mg/dL Calcium (8.4-10.2) mg/dL Magnesium (1.6-2.3) mg/dL Total Bilirubin (0.2-1.3) mg/dL AST (14-36) U/L ALT (4-34) U/L Alkaline Phosphatase (38-126) U/L Troponin I <0.012 (0.000-0.034) ng/mL Total Protein (6.3-8.2) g/dL Albumin (3.5-5.0) g/dL TSH (0.465-4.680) mIU/L Urine Color Colorless Urine Appearance Clear (Clear) Urine pH 6.5 (5.0-8.0) Ur Specific [place] 1.005 (1.001-1.035) Urine Protein Negative (Negative) Urine Glucose (UA) Negative (Negative) Urine Ketones Negative (Negative) Urine Blood Large H (Negative) Urine Nitrite Negative (Negative) Urine Bilirubin Negative (Negative) Urine Urobilinogen <2.0 (<2.0) mg/dL Ur Leukocyte Esterase Negative (Negative) Urine RBC 30 H (0-5) /hpf Urine WBC <1 (0-5) /hpf Ur Squamous Epith Cells 1 (0-4) /hpf Disposition Clinical Impression: Palpitations Disposition: HOME SELF-CARE Condition: Good Instructions (If sedation given, give patient instructions): Heart Palpitations (ED) Is patient prescribed a controlled substance at d/c from ED?: No Referrals: Darren Deal MD [Primary Care Provider] - 1-2 days
[2021-02-09 23:47] LABS: INR 0.9 (<1.2); Partial Thromboplastin Time 22.4 sec (22.0-30.0); Prothrombin Time 10.1 sec (9.0-12.0)
--- NOTE | 2021-02-09 23:53 | XR ---
EXAMINATION TYPE: XR chest 2V DATE OF EXAM: 02/09/2021 COMPARISON: 05/09/2019 HISTORY: Dysrhythmia TECHNIQUE: 2 views FINDINGS: There is no heart failure nor confluent pneumonic infiltrate. There is small linear density at the lung bases. There are no hilar masses. Mediastinum is normal. There are chest leads. IMPRESSION: Mild subsegmental atelectasis at the lung bases without change. Normal heart.
[2021-02-09 23:56] LABS: ALT 15 U/L (4-34); AST 22 U/L (14-36); African American GFR (CKD) >90 (>60 ml/min/1.73 sqM); Albumin 4.2 g/dL (3.5-5.0); Alkaline Phosphatase 70 U/L (38-126); Anion Gap 9 mmol/L; Blood Urea Nitrogen 15 mg/dL (7-17); Calcium 9.8 mg/dL (8.4-10.2); Carbon Dioxide 21 mmol/L (22-30); Chloride 108 mmol/L (98-107); Glucose 104 mg/dL (74-99); Magnesium 1.9 mg/dL (1.6-2.3); Non-African American GFR(CKD) >90 (>60 ml/min/1.73 sqM); Potassium 3.9 mmol/L (3.5-5.1); Sodium 138 mmol/L (137-145); Total Bilirubin 0.4 mg/dL (0.2-1.3)
[2021-02-10 00:23] VITALS: RESP 18
[2021-02-10 00:54] LABS: Appearance,Urine Clear (Clear); Bilirubin,Urine Negative (Negative); Blood,Urine Large (Negative); Color,Urine Colorless; Glucose,Urine (UA) Negative (Negative); Ketones,Urine Negative (Negative); Leukocyte Esterase,Urine Negative (Negative); Nitrite,Urine Negative (Negative); PH, Urine 6.5 (5.0-8.0); Protein,Urine Negative (Negative); RBC,Urine 30 /hpf (0-5); Specific Gravity,Urine 1.005 (1.001-1.035); Squamous Epithelial Cell,Urine 1 /hpf (0-4); Urobilinogen,Urine <2.0 mg/dL (<2.0); WBC,Urine <1 /hpf (0-5)
--- NOTE | 2021-02-10 01:40 | CT ---
EXAMINATION TYPE: CT abdomen pelvis wo con DATE OF EXAM: 02/10/2021 COMPARISON: 01/06/2010 HISTORY: r/o renal stone. prior w/ contrast on PACS. CT DLP: 514.8 mGycm Automated exposure control for dose reduction was used. Images obtained from the diaphragm to the floor the pelvis with no contrast. There is some mild atelectasis at the lung bases. Heart is enlarged. There is no pericardial effusion . Stomach is intact. Liver spleen pancreas appear intact. The bile ducts are not dilated. Gallbladder has normal size. There are small calculi in the dependent gallbladder. There is no adrenal mass. Kidneys have normal size. There are left-sided renal parapelvic cysts. Uret ers are not dilated. There is no retroperitoneal adenopathy. There are numerous diverticula in the si gmoid colon. Bladder distends smoothly. There is no inguinal hernia. Uterus is anteverted. There is n o free fluid in the pelvis. Lumbar vertebra have normal alignment. There is degenerative disc space n arrowing at L1-2. There is no compression fracture. Appendix is posterior and appears normal. There is no mesenteric edema. There is no ascites or free a ir. There is no bowel obstruction. IMPRESSION: Numerous small gallstones. No dilated ducts. No acute abnormality of the abdomen pelvis. No evidence of renal stone or obstruction. Colonic diverticulosis without diverticulitis. There is left-sided nadir al parapelvic cysts which are new compared to old exam.
[2021-02-10] MEDS ORDERED: METOPROLOL TARTRATE 5 MG/5 ML VIAL IVP STA (02:47)
[2021-02-10 04:04] VITALS: BP 135/81; PULSE 60; TEMP 98.2
== END 2021-02-10 04:03 | disposition home or self-care (01) ==
LOC: EC 22:35
DX: R00.2 Palpitations (principal); I10 Essential (primary) hypertension; I48.91 Unspecified atrial fibrillation; M06.9 Rheumatoid arthritis, unspecified; Z79.899 Other long term (current) drug therapy; Z79.01 Long term (current) use of anticoagulants; Z88.1 Allergy status to other antibiotic agents; Z88.2 Allergy status to sulfonamides
CPT/HCPCS: 36415; 71046; 74176; 80053; 81001; 83735; 84443; 84484; 85025; 85610; 85730; 93005; 96374; 99285

== ENCOUNTER 2021-10-15 21:18 | Emergency (ER) | payer MEDICARE, BC ==
[2021-10-15 22:03] VITALS: BP 159/80; PULSE 69; RESP 18; TEMP 98.5
[2021-10-15] MEDS ORDERED: traMADol 50 MG STARTER PACK 3 TAB BTL PO STA (23:13)
--- NOTE | 2021-10-15 23:25 | ED ---
Extremity Problem HPI - General Chief complaint: Extremity Problem,Nontraumatic Stated complaint: Revisit L Foot Time Seen by Provider: 10/15/21 23:03 Source: patient, RN notes reviewed Mode of arrival: wheelchair - History of Present Illness Initial comments: Patient presents with left great toe pain. Patient was seen here last night and diagnosed with gout. Patient in an inadvertently got the wrong prescription. It was supposed to be tramadol instead of Toradol. Patient was unable to get the prescription filled today. Patient was told to come back today. Patient has taken Tylenol earlier this night. Has no other pain medication. No headache, no fever or chills, no changes in vision or hearing, no sore throat or difficulty with speech, no neck pain, no chest pain or shortness of breath, no abdominal pain, no nausea or vomiting, no changes in urination or bowel movements, no numbness or tingling, no skin rashes or lesions. 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 - Related Data Home Medications Medication Instructions Recorded Confirmed Acetaminophen Tab [Tylenol Tab] 500 mg PO Q6H PRN 02/09/21 02/09/21 Ergocalciferol (Vitamin D2) 1,250 mcg PO WEEKLY 02/09/21 02/09/21 [Drisdol (50,000 Iu)] Estradiol Cream [Estrace Cream 1 gm VAGINAL DAILY 02/09/21 02/09/21 0.01%] Rosuvastatin Calcium [Crestor] 5 mg PO DAILY 02/09/21 02/09/21 Previous Rx's Medication Instructions Recorded Apixaban [Eliquis] 5 mg PO BID #60 tab 05/11/19 Metoprolol Tartrate [Lopressor] 50 mg PO BID #60 tab 05/11/19 traMADol HCl [Ultram] 50 mg PO Q6H PRN #20 tab 10/14/21 traMADol HCl [Ultram] 50 mg PO Q6H PRN #12 tab 10/15/21 Allergies Allergy/AdvReac Type Severity Reaction Status Date / Time sulfamethoxazole Allergy Swelling Verified 10/15/21 22:03 [From Bactrim] trimethoprim [From Bactrim] Allergy Swelling Verified 10/15/21 22:03 levofloxacin [From Levaquin] AdvReac Unknown Verified 10/15/21 22:03 Review of Systems ROS Statement: Those systems with pertinent positive or pertinent negative responses have been documented in the HPI. ROS Other: All systems not noted in ROS Statement are negative. Past Medical History Past Medical History: Atrial Fibrillation, Hypertension, Rheumatoid Arthritis (RA) Additional Past Medical History / Comment(s): AFIB 2008,thoracoabdominal aortic aneurysm History of Any Multi-Drug Resistant Organisms: None Reported Past Surgical History: Section Additional Past Surgical History / Comment(s): L leg vein stripping, foot surgery, left thumb surgery Past Anesthesia/Blood Transfusion Reactions: No Reported Reaction Past Psychological History: No Psychological Hx Reported, Depression Smoking Status: Never smoker Past Alcohol Use History: Occasional Past Drug Use History: None Reported - Past Family History Mother Family Medical History: Cancer Father Additional Family Medical History / Comment(s): gastrointestinal issues resulting in General Exam General appearance: alert, in no apparent distress Head exam: Present: atraumatic, normocephalic, normal inspection Eye exam: Present: normal appearance, PERRL, EOMI. Absent: scleral icterus, conjunctival injection, periorbital swelling ENT exam: Present: normal exam, mucous membranes moist Neck exam: Present: normal inspection. Absent: tenderness, meningismus, lymphadenopathy Respiratory exam: Present: normal lung sounds bilaterally. Absent: respiratory distress, wheezes, rales, rhonchi, stridor Cardiovascular Exam: Present: regular rate, normal rhythm, normal heart sounds. Absent: systolic murmur, diastolic murmur, rubs, gallop, clicks GI/Abdominal exam: Present: soft. Absent: tenderness Extremities exam: Present: normal inspection, full ROM, tenderness (Tender over the left first MTP joint, no evidence of infectious process. Capillary refill less than 2 seconds. Pedal pulses are intact.), normal capillary refill. Absent: pedal edema, joint swelling, calf tenderness Back exam: Present: normal inspection Neurological exam: Present: alert, oriented X3, CN II-XII intact Psychiatric exam: Present: normal affect, normal mood Skin exam: Present: warm, dry, intact, normal color. Absent: rash Course Vital Signs 10/15/21 21:59 Temperature 98.5 F Pulse Rate 69 Respiratory 18 Rate Blood Pressure 159/80 O2 Sat by Pulse 98 Oximetry Medical Decision Making - Medical Decision Making Symptoms consistent with podagra, left great toe. Patient given a tramadol starter pack, 3 day course written. 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 Patient concurs with this treatment plan. Patient was told to return to the ER for any signs or symptoms worsen. Told to return immediately if any other problems arise. All questions answered. Treatment plan discussed. Patient in agreement Every effort has been made to ensure accuracy of this dictation. However, due to the limitations of electronic medical records and dictation devices, errors in charting still occur. Supervising physicians Dr. Choi Disposition Clinical Impression: Podagra Narrative: Left great toe gout Disposition: HOME SELF-CARE Condition: Stable Instructions (If sedation given, give patient instructions): Gout (ED) Additional Instructions: Follow-up with your regular physician as directed. Return to the ER immediately if any symptoms worsen, new symptoms arise, or any other problems develop.You can continue Tylenol as directed on bottle for additional pain control. Make a follow-up appointment with your regular physician. 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 Is patient prescribed a controlled substance at d/c from ED?: No Referrals: None,Stated [Primary Care Provider] - 1-2 days Time of Disposition: 23:19
== END 2021-10-15 23:32 | disposition home or self-care (01) ==
LOC: EC 21:18
DX: M10.9 Gout, unspecified (principal); I10 Essential (primary) hypertension; I48.91 Unspecified atrial fibrillation; M06.9 Rheumatoid arthritis, unspecified; Z79.01 Long term (current) use of anticoagulants; Z79.899 Other long term (current) drug therapy
CPT/HCPCS: 99283

== ENCOUNTER 2022-06-01 12:41 | Inpatient (IN) | payer MEDICARE, BC ==
--- NOTE | 2022-06-01 14:34 | ED ---
Dizziness HPI - General Chief Complaint: Dizziness Stated Complaint: near syncope, SOB Time Seen by Provider: 06/01/22 14:11 Source: patient, family Mode of arrival: wheelchair Limitations: no limitations - History of Present Illness Initial Comments: 70-year-old female with history of aortic repair this past February also history of atrial fibrillation who states she had the onset of waking this morning of lightheadedness and dizziness no overt chest pain however. He also had shortness of breath with it. She is noted to report that she had a heart rate of 43-44 bpm this morning she checked her blood pressure is seemed to be okay. She also states she has similar episode about 2 days ago. She denies any reports of problems with thyroid. Headaches fevers chills sweats or other symptoms. MD Complaint: dizziness, lightheadedness - Related Data Home Medications Medication Instructions Recorded Confirmed Acetaminophen Tab [Tylenol Tab] 500 mg PO Q4H PRN 02/09/21 06/01/22 Rosuvastatin Calcium [Crestor] 5 mg PO HS 02/09/21 06/01/22 Loratadine [Claritin] 10 mg PO DAILY PRN 06/01/22 06/01/22 Orencia Infusion 1 dose IV QMONTHLY 06/01/22 06/01/22 Previous Rx's Medication Instructions Recorded Apixaban [Eliquis] 5 mg PO BID #60 tab 05/11/19 Metoprolol Tartrate [Lopressor] 50 mg PO BID #60 tab 05/11/19 Allergies Allergy/AdvReac Type Severity Reaction Status Date / Time sulfamethoxazole Allergy Swelling Verified 06/01/22 15:21 [From Bactrim] trimethoprim [From Bactrim] Allergy Swelling Verified 06/01/22 15:21 levofloxacin [From Levaquin] AdvReac Unknown Verified 06/01/22 15:21 Review of Systems ROS Statement: Those systems with pertinent positive or pertinent negative responses have been documented in the HPI. ROS Other: All systems not noted in ROS Statement are negative. Past Medical History Past Medical History: Atrial Fibrillation, Hypertension, Rheumatoid Arthritis (RA) Additional Past Medical History / Comment(s): AFIB 2008,thoracoabdominal aortic aneurysm History of Any Multi-Drug Resistant Organisms: None Reported Past Surgical History: Section Additional Past Surgical History / Comment(s): L leg vein stripping, foot surgery, left thumb surgery , aortic aneursym repair Past Anesthesia/Blood Transfusion Reactions: No Reported Reaction Past Psychological History: No Psychological Hx Reported, Depression Smoking Status: Never smoker Past Alcohol Use History: Occasional Past Drug Use History: None Reported - Past Family History Mother Family Medical History: Cancer Father Additional Family Medical History / Comment(s): gastrointestinal issues resulting in General Exam - General Exam Comments Initial Comments: This is a well up well-nourished awake alert oriented 4 female Limitations: no limitations General appearance: alert, in no apparent distress Head exam: Present: atraumatic, normocephalic, normal inspection Eye exam: Present: normal appearance, PERRL, EOMI. Absent: scleral icterus, conjunctival injection, periorbital swelling ENT exam: Present: mucous membranes dry Neck exam: Present: normal inspection, full ROM, other (No stridor JVD or bruits). Absent: tenderness, meningismus, lymphadenopathy Respiratory exam: Present: normal lung sounds bilaterally. Absent: respiratory distress, wheezes, rales, rhonchi, stridor Cardiovascular Exam: Present: normal rhythm, bradycardia (Heart rate in the 50s to low 60s occasional PVCs noted.), normal heart sounds. Absent: systolic murmur, diastolic murmur, rubs, gallop, clicks GI/Abdominal exam: Present: soft, normal bowel sounds. Absent: distended, tenderness, guarding, rebound, rigid Extremities exam: Present: normal inspection, full ROM, normal capillary refill. Absent: tenderness, pedal edema, joint swelling, calf tenderness Back exam: Present: normal inspection Neurological exam: Present: alert, oriented X3, CN II-XII intact Psychiatric exam: Present: normal affect, normal mood Skin exam: Present: warm, dry, intact, normal color. Absent: rash Course Vital Signs 06/01/22 06/01/22 06/01/22 12:44 12:55 14:02 Temperature 98 F 98 F Pulse Rate 48 L 48 L 56 L Respiratory 20 20 18 Rate Blood Pressure 144/64 144/64 134/78 O2 Sat by Pulse 100 100 Oximetry - Reevaluation(s) Reevaluation #1: 06/01/22 17:21 Reevaluation the patient her heart rate has improved with the 60s EKG Findings - EKG Results: EKG: interpreted by ERMD (EKG showed a sinus rhythm with frequent unifocal PVCs. A 148 QRS duration 86 QT since QTC 410/470 artifact present prolonged QT and bradycardia rate of 40 with PVC) Medical Decision Making - Medical Decision Making I did discuss findings with the patient family also with Dr. Corbin covering Dr. Garcia. Patient be admitted with cardiology consultation Was pt. sent in by a medical professional or institution? @ No -[by , PA, RN ELIGIBILITY, urgent care, hospital, or [facility]] Did you speak to anyone other than the patient for history? @ No-[EMS, parent, family, police, friend?] Did you review nursing and triage notes? @ Yes and agree-[agree or disagree, why?] Were old charts reviewed? @ No-[outside hosp., previous admissions, EMS record, old EKG, old radiological studies, urgent care reports/EKGs, [facility] records?] Differential Diagnosis? @ Cardiac dysrhythmia, vasovagal episode -[chest pain, altered mental status abdominal pain women, abdominal pain men, vaginal bleeding, weakness, fever, dyspnea, syncope, headache, dizziness, GI bleed, back pain, seizure] EKG interpreted by me (3pts min.)? @ Yes evaluated by me -[none] X-rays interpreted by me (1pt min.)? @ Evaluated by me -[none] CT interpreted by me (1pt min.)? @ -[none] U/S interpreted by me (1pt. min.)? @ -[none] What testing was considered but not performed? (CT, X-rays, U/S, labs)? Why? @ [CT, X-rays, U/S, labs? Why?] What meds were considered but not given? Why? @ Yes but not indicated -[none] Did you discuss the management of the patient with other professionals? @ Dr. Corbin-[professionals i.e. , CARLA, RN ELIGIBILITY, Lab, RT, Psych Nurse, Intermodal Owner Operator Truck Driver, Swaging Machine Operator, Teacher, Systems Protection Technician, casey saw operator? Give summary] Did you reconcile home meds? @ -[none] Was smoking cessation discussed for >3mins.? @ -[none] Was critical care preformed (if so, how long)? @ -[none] Were there social determinants of health that impacted care today? How? (Homelessness, low income, unemployed, alcoholism, drug addiction, transp ortation, low edu. Level, literacy, decrease access to med. care, intermediate, rehab)? @ -[Homelessness, low income, unemployed, alcoholism, drug addiction, transportation, low edu. Level, literacy, decrease access to med. care, intermediate, rehab?] Was there de-escalation of care discussed even if they declined? (Discuss DNR or withdrawal of care, Hospice)? @ -[Discuss DNR or withdrawal of care, Hospice?] What co-morbidities impacted this encounter? (DM, HTN, Smoking, COPD, CAD, Cancer, CVA, Hep., AIDS, mental health diagnosis, sleep apnea, morbid obesity)? @ -[DM, HTN, Smoking, COPD, CAD, Cancer, CVA, Hep., AIDS, mental health diagnosis, sleep apnea, morbid obesity?] Was patient admitted / discharged? @ Patient was admitted -[hospital course] Undiagnosed new problem with uncertain prognosis? @ Symptomatic bradycardia-[none] Drug Therapy requiring intensive monitoring for toxicity (Heparin, Nitro, Insulin, Cardizem)? @ -[none] Were any procedures done? @ -[none] Diagnosis/symptom? @ Symptomatic bradycardia, dizziness-[default] Acute, or Chronic, or Acute on Chronic? @ Acute-[default] Uncomplicated (without systemic symptoms) or Complicated (systemic symptoms)? @ -[default] Side effects of treatment? @ -[none] Exacerbation, Progression, or Severe Exacerbation] @ -[no] Poses a threat to life or bodily function? @ Potentially-[no] - Lab Data Result diagrams: 06/01/22 14:51 06/01/22 14:51 Lab Results 06/01/22 06/01/22 06/01/22 Range/Units 14:51 14:51 14:51 WBC 4.5 (3.8-10.6) k/uL RBC 4.08 (3.80-5.40) m/uL Hgb 12.9 (11.4-16.0) gm/dL Hct 38.6 (34.0-46.0) % MCV 94.6 (80.0-100.0) fL MCH 31.6 (25.0-35.0) pg MCHC 33.4 (31.0-37.0) g/dL RDW 12.7 (11.5-15.5) % Plt Count 186 (150-450) k/uL MPV 9.7 Neutrophils % 60 % Lymphocytes % 24 % Monocytes % 8 % Eosinophils % 4 % Basophils % 1 % Neutrophils # 2.7 (1.3-7.7) k/uL Lymphocytes # 1.1 (1.0-4.8) k/uL Monocytes # 0.3 (0-1.0) k/uL Eosinophils # 0.2 (0-0.7) k/uL Basophils # 0.1 (0-0.2) k/uL APTT 23.4 (22.0-30.0) sec Sodium (137-145) mmol/L Potassium (3.5-5.1) mmol/L Chloride (98-107) mmol/L Carbon Dioxide (22-30) mmol/L Anion Gap mmol/L BUN (7-17) mg/dL Creatinine (0.52-1.04) mg/dL Est GFR (CKD-EPI)AfAm (>60 ml/min/1.73 sqM) Est GFR (CKD-EPI)NonAf (>60 ml/min/1.73 sqM) Glucose (74-99) mg/dL Calcium (8.4-10.2) mg/dL Total Bilirubin (0.2-1.3) mg/dL AST (14-36) U/L ALT (4-34) U/L Alkaline Phosphatase (38-126) U/L Troponin I <0.012 (0.000-0.034) ng/mL Total Protein (6.3-8.2) g/dL Albumin (3.5-5.0) g/dL 06/01/22 Range/Units 14:51 WBC (3.8-10.6) k/uL RBC (3.80-5.40) m/uL Hgb (11.4-16.0) gm/dL Hct (34.0-46.0) % MCV (80.0-100.0) fL MCH (25.0-35.0) pg MCHC (31.0-37.0) g/dL RDW (11.5-15.5) % Plt Count (150-450) k/uL MPV Neutrophils % % Lymphocytes % % Monocytes % % Eosinophils % % Basophils % % Neutrophils # (1.3-7.7) k/uL Lymphocytes # (1.0-4.8) k/uL Monocytes # (0-1.0) k/uL Eosinophils # (0-0.7) k/uL Basophils # (0-0.2) k/uL APTT (22.0-30.0) sec Sodium 143 (137-145) mmol/L Potassium 4.4 (3.5-5.1) mmol/L Chloride 111 H (98-107) mmol/L Carbon Dioxide 26 (22-30) mmol/L Anion Gap 6 mmol/L BUN 13 (7-17) mg/dL Creatinine 0.65 (0.52-1.04) mg/dL Est GFR (CKD-EPI)AfAm >90 (>60 ml/min/1.73 sqM) Est GFR (CKD-EPI)NonAf >90 (>60 ml/min/1.73 sqM) Glucose 91 (74-99) mg/dL Calcium 9.0 (8.4-10.2) mg/dL Total Bilirubin 0.3 (0.2-1.3) mg/dL AST 26 (14-36) U/L ALT 26 (4-34) U/L Alkaline Phosphatase 62 (38-126) U/L Troponin I (0.000-0.034) ng/mL Total Protein 6.3 (6.3-8.2) g/dL Albumin 3.9 (3.5-5.0) g/dL - Radiology Data Interpreted by me: Imaging evaluated by me no acute processes. Disposition Clinical Impression: Symptomatic bradycardia, Bradycardia, Dizziness Disposition: ADMITTED IP TO THIS [facility] Condition: Fair Referrals: Deandre Garcia MD [Primary Care Provider] - 1-2 days Decision Date: 06/01/22 Decision Time: 17:24
[2022-06-01 14:54] LABS: Basophils # (A) 0.1 k/uL (0-0.2); Basophils % (A) 1 %; Eosinophils # (A) 0.2 k/uL (0-0.7); Eosinophils % (A) 4 %; HCT 38.6 % (34.0-46.0); HGB 12.9 gm/dL (11.4-16.0); Lymphocytes # (A) 1.1 k/uL (1.0-4.8); Lymphocytes % (A) 24 %; MCH 31.6 pg (25.0-35.0); MCHC 33.4 g/dL (31.0-37.0); MCV 94.6 fL (80.0-100.0); Mean Platelet Volume 9.7; Monocytes # (A) 0.3 k/uL (0-1.0); Monocytes % (A) 8 %; Neutrophils # (A) 2.7 k/uL (1.3-7.7); Neutrophils % (A) 60 %; Platelet Count 186 k/uL (150-450); RBC 4.08 m/uL (3.80-5.40); RDW 12.7 % (11.5-15.5); WBC 4.5 k/uL (3.8-10.6)
[2022-06-01 15:06] LABS: ALT 26 U/L (4-34); AST 26 U/L (14-36); African American GFR (CKD) >90 (>60 ml/min/1.73 sqM); Albumin 3.9 g/dL (3.5-5.0); Alkaline Phosphatase 62 U/L (38-126); Anion Gap 6 mmol/L; Blood Urea Nitrogen 13 mg/dL (7-17); Carbon Dioxide 26 mmol/L (22-30); Chloride 111 mmol/L (98-107); Glucose 91 mg/dL (74-99); Non-African American GFR(CKD) >90 (>60 ml/min/1.73 sqM); Potassium 4.4 mmol/L (3.5-5.1); Sodium 143 mmol/L (137-145); Total Bilirubin 0.3 mg/dL (0.2-1.3); Total Protein 6.3 g/dL (6.3-8.2)
[2022-06-01] MEDS ORDERED: NALOXONE 0.4 MG/ML 1 ML VIAL IV PRN (17:25)
[2022-06-01] MEDS ORDERED: ACETAMINOPHEN TAB 325 MG TAB PO PRN (17:25)
[2022-06-01] MEDS ORDERED: ACETAMINOPHEN TAB 500 MG TAB PO PRN (17:28)
[2022-06-01] MEDS ORDERED: LORATADINE 10 MG TAB PO PRN (17:28)
[2022-06-01] MEDS ORDERED: ORENCIA INFUSION IV SCH (17:30)
--- NOTE | 2022-06-01 17:48 | XR ---
EXAMINATION TYPE: XR chest 2V DATE OF EXAM: 06/01/2022 5:17 PM COMPARISON: Chest radiographs from 02/09/2021 TECHNIQUE: XR chest 2V Frontal and lateral views of the chest. CLINICAL INDICATION:Female, 71 years old with history of Bradycardia; FINDINGS: Lungs/Pleura: There is no evidence of pleural effusion, focal consolidation, or pneumothorax. Pulmonary vascularity: Unremarkable. Heart/mediastinum: Cardiomediastinal silhouette is enlarged and stable. Left atrial appendage occlusi on device is present. Musculoskeletal: No acute osseous pathology. Midline sternotomy wires are noted. IMPRESSION: No acute cardiopulmonary disease/process.
[2022-06-01 18:41] LABS: Magnesium 2.1 mg/dL (1.6-2.3)
[2022-06-01] MEDS: SODIUM CHLORIDE 0.9% 1,000 ML IV SCH (19:44)
[2022-06-01] MEDS: APIXABAN 5 MG TAB PO SCH (20:04)
[2022-06-01] MEDS ORDERED: ATORVASTATIN 10 MG TAB PO SCH (21:00)
[2022-06-01] MEDS ORDERED: METOPROLOL TARTRATE 50 MG TAB PO SCH (21:00)
--- NOTE | 2022-06-02 07:40 | P.CRDCN ---
History of Present Illness Consult date: 06/02/22 Chief complaint: Bradycardia History of present illness: The patient is a very pleasant 71-year-old female patient with a past medical history significant for history of ascending aortic repair along with mitral valve repair as well as paroxysmal atrial fibrillation who presented to the hospital feeling weak. She checked her heart rate at home and her heart rate has been in the 50s and for that reason she decided to come to the hospital. S he also was feeling somewhat dizzy. No loss of consciousness. No symptoms of chest pain or chest discomfort. In the emergency department she was found to be in the 50s. She has been maintaining normal blood pressure. She was receiving metoprolol 50 mg by mouth twice a day. I cut down the dose to 25 mg by mouth twice a day also she underwent further investigation including cardiac enzymes came in to be unremarkable and TSH came in to be unremarkable. The patient overall already feeling better. She would like to go home. She doesn't follow with a ballet teacher out of this area. I'm going to get the patient up and around and if she is asymptomatic she potentially, hormone lower dose of metoprolol and continue oral anticoagulation. Past Medical History Past Medical History: Atrial Fibrillation, Hypertension, Rheumatoid Arthritis (RA) Additional Past Medical History / Comment(s): AFIB 2007,thoracoabdominal aortic aneurysm History of Any Multi-Drug Resistant Organisms: None Reported Past Surgical History: Section Additional Past Surgical History / Comment(s): L leg vein stripping, foot surgery, left thumb surgery , aortic aneursym repair Past Anesthesia/Blood Transfusion Reactions: No Reported Reaction Past Psychological History: No Psychological Hx Reported, Depression Smoking Status: Never smoker Past Alcohol Use History: Occasional Past Drug Use History: None Reported - Past Family History Mother Family Medical History: Cancer Father Additional Family Medical History / Comment(s): gastrointestinal issues res ulting in Medications and Allergies Home Medications Medication Instructions Recorded Confirmed Type Apixaban [Eliquis] 5 mg PO BID #60 tab 05/11/19 06/01/22 Rx Metoprolol Tartrate [Lopressor] 50 mg PO BID #60 tab 05/11/19 06/01/22 Rx Acetaminophen Tab [Tylenol Tab] 500 mg PO Q4H PRN 02/09/21 06/01/22 History Rosuvastatin Calcium [Crestor] 5 mg PO HS 02/09/21 06/01/22 History Loratadine [Claritin] 10 mg PO DAILY PRN 06/01/22 06/01/22 History Orencia Infusion 1 dose IV QMONTHLY 06/01/22 06/01/22 History Allergies Allergy/AdvReac Type Severity Reaction Status Date / Time sulfamethoxazole Allergy Swelling Verified 06/01/22 15:21 [From Bactrim] trimethoprim [From Bactrim] Allergy Swelling Verified 06/01/22 15:21 levofloxacin [From Levaquin] AdvReac Unknown Verified 06/01/22 15:21 Physical Exam Vitals: Vital Signs Temp Pulse Resp BP Pulse Ox 06/02/22 04:00 65 18 06/02/22 03:00 98.1 F 69 18 125/65 95 06/02/22 00:33 59 L 16 122/69 98 06/01/22 19:00 72 18 146/76 96 06/01/22 14:02 56 L 18 134/78 06/01/22 12:55 98 F 48 L 20 144/64 100 06/01/22 12:44 98 F 48 L 20 144/64 100 - Constitutional General appearance: no acute distress - Respiratory Respiratory: bilateral: CTA - Cardiovascular Rhythm: regular Heart sounds: normal: S1, S2 Abnormal Heart Sounds: systolic murmur Results 06/01/22 14:51 06/01/22 14:51 Cardiac Enzymes 06/01/22 06/01/22 06/01/22 Range/Units 14:51 14:51 17:56 AST 26 (14-36) U/L Troponin I <0.012 <0.012 (0.000-0.034) ng/mL 06/01/22 Range/Units 20:15 AST (14-36) U/L Troponin I <0.012 (0.000-0.034) ng/mL Coagulation 06/01/22 Range/Units 14:51 APTT 23.4 (22.0-30.0) sec CBC 06/01/22 Range/Units 14:51 WBC 4.5 (3.8-10.6) k/uL RBC 4.08 (3.80-5.40) m/uL Hgb 12.9 (11.4-16.0) gm/dL Hct 38.6 (34.0-46.0) % Plt Count 186 (150-450) k/uL Comprehensive Metabolic Panel 06/01/22 Range/Units 14:51 Sodium 143 (137-145) mmol/L Potassium 4.4 (3.5-5.1) mmol/L Chloride 111 H (98-107) mmol/L Carbon Dioxide 26 (22-30) mmol/L BUN 13 (7-17) mg/dL Creatinine 0.65 (0.52-1.04) mg/dL Glucose 91 (74-99) mg/dL Calcium 9.0 (8.4-10.2) mg/dL AST 26 (14-36) U/L ALT 26 (4-34) U/L Alkaline Phosphatase 62 (38-126) U/L Total Protein 6.3 (6.3-8.2) g/dL Albumin 3.9 (3.5-5.0) g/dL Current Medications Generic Name Dose Route Start Last Admin Trade Name Freq PRN Reason Stop Dose Admin Acetaminophen 650 mg 06/01/22 17:25 Acetaminophen Tab 325 Mg Tab PO Q6HR PRN Mild Pain or Fever > 100.5 Apixaban 5 mg 06/01/22 21:00 06/01/22 20:04 Apixaban 5 Mg Tab PO 5 mg BID KIMMY Administration Protocol Atorvastatin Calcium 10 mg 06/01/22 21:00 06/01/22 20:05 Atorvastatin 10 Mg Tab PO 10 mg HS KIMMY Administration Sodium Chloride 1,000 mls @ 75 mls/hr 06/01/22 17:30 06/01/22 19:44 Saline 0.9% IV 75 mls/hr .[id number] KIMMY Administration Loratadine 10 mg 06/01/22 17:28 Loratadine 10 Mg Tab PO DAILY PRN Allergy Symptoms Metoprolol Tartrate 50 mg 06/01/22 21:00 06/01/22 20:05 Metoprolol Tartrate 50 Mg Tab PO 50 mg BID KIMMY Administration Naloxone HCl 0.2 mg 06/01/22 17:25 Naloxone 0.4 Mg/Ml 1 Ml Vial IV Q2M PRN Opioid Reversal 06/01/22 14:51 06/01/22 14:51 Assessment and Plan Assessment: Assessment Symptomatic bradycardia which has improved Paroxysmal atrial fibrillation Status post ascending aortic repair Status post mitral valve repair Plan Decrease the dose of metoprolol Thyroid disease was ruled out Acute coronary event was ruled out The patient potentially can be discharged
[2022-06-02 08:05] VITALS: TEMP 97.7
[2022-06-02] MEDS ORDERED: METOPROLOL TARTRATE 25 MG TAB PO SCH (08:30)
[2022-06-02] MEDS: SODIUM CHLORIDE 0.9% 1,000 ML IV SCH (09:22)
[2022-06-02] MEDS: APIXABAN 5 MG TAB PO SCH (09:23)
[2022-06-02 12:37] VITALS: BP 106/74; PULSE 64; RESP 18
--- NOTE | 2022-06-02 12:53 | P.HPIM ---
History of Present Illness Please consider this note as combined H&P and discharge summary This is a pleasant 71 years old female with multiple medical problems as below Please consider this note as combined H&P and discharge summary yesterday ade tinoco was feeling weak and she checked her blood pressure was okay but her crit was 43-44 associated with lightheadedness, she got towards and decided to come to emergency room, currently her heart rate is improved up to 68 and she denies any her symptoms. She states that this episode of lightheadedness associated with bradycardia happened twice per to come to the hospital. She denies any other symptoms, no chest pain or dyspnea or coughing. No hemoptysis, no leg pain or swelling. No more dizziness or syncope. No GI or urinary symptoms, no vomiting diarrhea or abdominal pain, no dysuria or urgency. No headache or weakness or numbness. No blurred vision or slurred speech. Patient says she is back to normal cells and she agrees to go home today [facility] has already evaluated the patient and cleared her for discharge [facility] recommended to lower the dose of metoprolol to 25 mg twice a day, new prescription is provided [facility] and medical team recommended patient follow-up with her own medical aide and she agrees, patient states that she has the contact information for her medical aide Denies smoking alcohol or illicit drugs Vitals stable and patient is afebrile. Of note heart rate on admission was low 48-56. Currently improved to 65 She has unremarkable CBC, BMP liver enzymes, troponin 3 less than 0.012. TSH normal 1.0. EKG showed sinus rhythm at [address] T changes, QTC 417 He was admitted with cardiology evaluation while placed on normal saline 75 mL/h Review of Systems Review of systems CONSTITUTIONAL: No fever, no malaise, no fatigue. HEENT: No recent visual problems or hearing problems. Denied any sore throat. CARDIOVASCULAR: No orthopnea, PND, no palpitations, no syncope. PULMONARY: No shortness of breath, no cough, no hemoptysis. GASTROINTESTINAL: No diarrhea, no nausea, no vomiting, no abdominal pain. Normoactive bowel sounds. NEUROLOGICAL: No headaches, no weakness, no numbness. HEMATOLOGICAL: Denies any bleeding or petechiae. GENITOURINARY: Denies any burning micturition, frequency, or urgency. MUSCULOSKELETAL/RHEUMATOLOGICAL: Denies any joint pain, swelling, or any muscle pain. ENDOCRINE: Denies any polyuria or polydipsia. Past Medical History Past Medical History: Atrial Fibrillation, Hypertension, Rheumatoid Arthritis (RA) Additional Past Medical History / Comment(s): AFIB 2008,thoracoabdominal aortic aneurysm History of Any Multi-Drug Resistant Organisms: None Reported Past Surgical History: Section Additional Past Surgical History / Comment(s): L leg vein stripping, foot surgery, left thumb surgery , aortic aneursym repair Past Anesthesia/Blood Transfusion Reactions: No Reported Reaction Past Psychological History: No Psychological Hx Reported, Depression Smoking Status: Never smoker Past Alcohol Use History: Occasional Past Drug Use History: None Reported - Past Family History Mother Family Medical History: Cancer Father Additional Family Medical History / Comment(s): gastrointestinal issues resulting in Medications and Allergies Home Medications Medication Instructions Recorded Confirmed Type Apixaban [Eliquis] 5 mg PO BID #60 tab 05/11/19 06/01/22 Rx Acetaminophen Tab [Tylenol] 500 mg PO Q4H PRN 02/09/21 06/01/22 History Rosuvastatin Calcium [Crestor] 5 mg PO HS 02/09/21 06/01/22 History Loratadine [Claritin] 10 mg PO DAILY PRN 06/01/22 06/01/22 History Orencia Infusion 1 dose IV QMONTHLY 06/01/22 06/01/22 History Metoprolol Tartrate [Lopressor] 25 mg PO BID #60 tab 06/02/22 Rx Allergies Allergy/AdvReac Type Severity Reaction Status Date / Time sulfamethoxazole Allergy Swelling Verified 06/01/22 15:21 [From Bactrim] trimethoprim [From Bactrim] Allergy Swelling Verified 06/01/22 15:21 levofloxacin [From Levaquin] AdvReac Unknown Verified 06/01/22 15:21 Physical Exam Vitals: Vital Signs Temp Pulse Pulse Resp BP BP Pulse Ox 06/02/22 08:00 97.7 F 60 12 116/61 96 06/02/22 04:00 65 18 06/02/22 03:00 98.1 F 69 18 125/65 95 06/02/22 00:33 59 L 16 122/69 98 06/01/22 19:00 72 18 146/76 96 06/01/22 14:02 56 L 18 134/78 06/01/22 12:55 98 F 48 L 20 144/64 100 06/01/22 12:44 98 F 48 L 20 144/64 100 GENERAL: The patient is alert and oriented x3, not in any acute distress. Well developed, well nourished. HEENT: Pupils are round and equally reacting to light. EOMI. No scleral icterus. No conjunctival pallor. Normocephalic, atraumatic. No pharyngeal erythema. No thyromegaly. CARDIOVASCULAR: S1 and S2 present. No murmurs, rubs, or gallops. PULMONARY: Chest is clear to auscultation, no wheezing or crackles. ABDOMEN: Soft, nontender, nondistended, normoactive bowel sounds. No palpable organomegaly. MUSCULOSKELETAL: No joint swelling or deformity. EXTREMITIES: No cyanosis, clubbing, or pedal edema. NEUROLOGICAL: Gross neurological examination did not reveal any focal deficits. SKIN: No rashes. no petechiae. Results CBC & Chem 7: 06/01/22 14:51 06/01/22 14:51 Labs: Abnormal Lab Results - Last 24 Hours (Table) 06/01/22 Range/Units 14:51 Chloride 111 H (98-107) mmol/L Assessment and Plan Assessment: Lightheadedness secondary to bradycardia chronic atrial fibrillation on eliquis Hyperlipidemia Hypertension History of rheumatoid arthritis History of aortic aneurysm status post repair Plan: Patient on metoprolol 50 mg at home with lower the dose to 25 mg twice a day as ordered. Cardiology consult. Dr. Barone already cleared the patient for discharge after lowering the dose of metoprolol. Patient is asymptomatic currently Patient is agreeable to go home. Problems and management plan discussed with the patient and she is agreeable. Patient is found stable and can be discharged home however she needs follow-up with her PCP Dr. Garcia in one week and she agrees. Also she has a medical aide from outside facility and instructed her to follow up with him in one week and she agrees to call and make appointment. Patient says that she has the contact information I told
[2022-06-02] MEDS ORDERED: FAMOTIDINE 20 MG/2 ML VIAL IV SCH (21:00)
--- NOTE | 2022-06-03 11:58 | CA ---
Transthoracic Echo Report Name: Jasmina Knox Age: 71 Gender: F : 1950 Exam Date: 06/02/2022 11:19 Exam Location: [facility] Ht (in): 67 Wt (lb): 159 Ordering Physician: Adria Rangel MD Attending/Referring Phys: Relief Map Modeler Kasie Mancera RDCS Procedure CPT: Indications: Episodic bradycardia Cardiac Hx: Technical Quality: Contrast 1: Total Dose (mL): Contrast 2: Total Dose (mL): MEASUREMENTS (Male / Female) Normal Values 2D ECHO LV Diastolic Diameter PLAX 3.9 cm 4.2 - 5.9 / 3.9 - 5.3 cm LV Systolic Diameter PLAX 2.6 cm IVS Diastolic Thickness 1.1 cm 0.6 - 1.0 / 0.6 - 0.9 cm LVPW Diastolic Thickness 1.5 cm 0.6 - 1.0 / 0.6 - 0.9 cm LV Relative Wall Thickness 0.7 RV Internal Dim ED PLAX 2.7 cm LA Systolic Diameter LX 3.6 cm 3.0 - 4.0 / 2.7 - 3.8 cm LA Volume 62.4 cm??? 18 - 58 / 22 - 52 cm??? M-MODE Aortic Root Diameter MM 3.1 cm LA Systolic Diameter MM 4.2 cm LA Ao Ratio MM 1.4 MV E Point Septal Separation 0.2 cm AV Cusp Separation MM 1.7 cm DOPPLER MV Area PHT 4.6 cm??? Mitral E Point Velocity 82.1 cm/s Mitral A Point Velocity 43.2 cm/s Mitral E to A Ratio 1.9 MV Deceleration Time 166.3 ms MV E' Velocity 8.7 cm/s Mitral E to MV E' Ratio 9.4 TR Peak Velocity 241.7 cm/s TR Peak Gradient 23.4 mmHg Right Ventricular Systolic Press 28.0 mmHg FINDINGS Left Ventricle Mildly increased septal wall thicknes left ventricular cavity size normal. Left ventricular ejection fraction is estimated at 55 %. Right Ventricle Normal right ventricular size and function. Right ventricular systolic pressure within normal limits. Right Atrium Normal right atrial size. Left Atrium Mildly increased left atrial volume. Mitral Valve Structurally normal mitral valve.mitral valve thickened. Mild to moderate mitral regurgitation. Aortic Valve Trileaflet aortic valve. Aortic valve sclerosis. Tricuspid Valve Structurally normal tricuspid valve. Mild tricuspid regurgitation. Pulmonic Valve Structurally normal pulmonic valve. Pericardium Normal pericardium. Aorta Normal size aortic root and proximal ascending aorta. CONCLUSIONS Normal left ventricular dimension and systolic function [id number] mitral regurgitation Previewed by: Dr. Nestor Osuna MD (Electronically Signed) Final Date: 03 June 2022 11:57
== END 2022-06-02 13:47 | disposition home or self-care (01) | DRG 310 ==
LOC: EC 12:41 → 3SCARD 17:25
PROVIDERS: ADMIT Internal Medicine; ATTEND Internal Medicine
DX: R00.1 Bradycardia, unspecified (principal); E78.5 Hyperlipidemia, unspecified; I48.0 Paroxysmal atrial fibrillation; M06.9 Rheumatoid arthritis, unspecified; I10 Essential (primary) hypertension; Z79.01 Long term (current) use of anticoagulants; Z79.899 Other long term (current) drug therapy; Z86.79 Personal history of other diseases of the circulatory system; Z88.1 Allergy status to other antibiotic agents; Z88.2 Allergy status to sulfonamides
CPT/HCPCS: 36415; 71046; 80053; 83735; 84443; 84484; 85025; 85730; 93005; 93306; 99285

== ENCOUNTER 2022-10-01 04:29 | Emergency (ER) | payer MEDICARE, BC ==
[2022-10-01 04:40] VITALS: BP 158/75; PULSE 67; RESP 18; TEMP 97.9
--- NOTE | 2022-10-01 05:15 | ED ---
Abdominal Pain HPI - General Chief Complaint: Abdominal Pain Stated Complaint: abdominal and back pain Time Seen by Provider: 10/01/22 04:56 Source: patient Mode of arrival: ambulatory Limitations: no limitations - History of Present Illness Initial Comments: 72-year-old female presents emergency Department reporting abdominal pain. States that it started around midnight. She was having diffuse abdominal pain and cramping. Does admit to a history of similar in the past that she does have a history of cold sweats. She admits to nausea without vomiting. No changes in her bowel or bladder habits. Denies ripping or tearing sensation to her back. She took Pepto at home without improvement in her symptoms. No other alleviating, precipitating or modifying factors - Related Data Home Medications Medication Instructions Recorded Confirmed Acetaminophen Tab [Tylenol] 500 mg PO Q4H PRN 02/09/21 06/01/22 Rosuvastatin Calcium [Crestor] 5 mg PO HS 02/09/21 06/01/22 Loratadine [Claritin] 10 mg PO DAILY PRN 06/01/22 06/01/22 Orencia Infusion 1 dose IV QMONTHLY 06/01/22 06/01/22 Previous Rx's Medication Instructions Recorded Apixaban [Eliquis] 5 mg PO BID #60 tab 05/11/19 Metoprolol Tartrate [Lopressor] 25 mg PO BID #60 tab 06/02/22 Allergies Allergy/AdvReac Type Severity Reaction Status Date / Time sulfamethoxazole Allergy Swelling Verified 06/01/22 15:21 [From Bactrim] trimethoprim [From Bactrim] Allergy Swelling Verified 06/01/22 15:21 levofloxacin [From Levaquin] AdvReac Unknown Verified 06/01/22 15:21 Review of Systems ROS Statement: Those systems with pertinent positive or pertinent negative responses have been documented in the HPI. ROS Other: All systems not noted in ROS Statement are negative. Past Medical History Past Medical History: Atrial Fibrillation, Hypertension, Rheumatoid Arthritis (RA) Additional Past Medical History / Comment(s): AFIB 2008,thoracoabdominal aortic aneurysm, gallstones History of Any Multi-Drug Resistant Organisms: None Reported Past Surgical History: Section Additional Past Surgical History / Comment(s): L leg vein stripping, foot surgery, left thumb surgery , aortic aneursym repair Past Anesthesia/Blood Transfusion Reactions: No Reported Reaction Past Psychological History: No Psychological Hx Reported, Depression Smoking Status: Never smoker Past Alcohol Use History: Occasional Past Drug Use History: None Reported - Past Family History Mother Family Medical History: Cancer Father Additional Family Medical History / Comment(s): gastrointestinal issues resulting in General Exam Limitations: no limitations General appearance: alert, in no apparent distress Head exam: Present: atraumatic, normocephalic, normal inspection Eye exam: Present: normal appearance, PERRL, EOMI. Absent: scleral icterus, conjunctival injection, periorbital swelling ENT exam: Present: normal exam, mucous membranes moist Neck exam: Present: normal inspection. Absent: tenderness, meningismus, lymphadenopathy Respiratory exam: Present: normal lung sounds bilaterally. Absent: respiratory distress, wheezes, rales, rhonchi, stridor Cardiovascular Exam: Present: regular rate, normal rhythm, normal heart sounds. Absent: systolic murmur, diastolic murmur, rubs, gallop, clicks GI/Abdominal exam: Present: soft, normal bowel sounds. Absent: distended, tenderness, guarding, rebound, rigid Extremities exam: Present: normal inspection, full ROM, normal capillary refill. Absent: tenderness, pedal edema, joint swelling, calf tenderness Back exam: Present: normal inspection Neurological exam: Present: alert, oriented X3, CN II-XII intact Psychiatric exam: Present: normal affect, normal mood Skin exam: Present: warm, dry, intact, normal color. Absent: rash Course Vital Signs 10/01/22 04:36 Temperature 97.9 F Pulse Rate 67 Respiratory 18 Rate Blood Pressure 158/75 O2 Sat by Pulse 97 Oximetry Medical Decision Making - Medical Decision Making Was pt. sent in by a medical professional or institution (, PA, LACE ROLLER, urgent care, hospital, or care home...) When possible be specific @ -No Did you speak to anyone other than the patient for history (EMS, parent, family, police, friend...)? What history was obtained from this source @ -No Did you review nursing and triage notes (agree or disagree)? Why? @ -I reviewed and agree with nursing and triage notes Were old charts reviewed (outside hosp., previous admission, EMS record, old EKG, old radiological studies, urgent care reports/EKG's, care home records)? Report findings @ -No old charts were reviewed Differential Diagnosis (chest pain, altered mental status, abdominal pain women, abdominal pain men, vaginal bleeding, weakness, fever, dyspnea, syncope, headache, dizziness, GI bleed, back pain, seizure, CVA, palpatations, mental health, musculoskeletal)? @ -gastritis, gastric ulcer, enterocolitis, reflux, diarrhea EKG interpreted by me (3pts min.). @ -No X-rays interpreted by me (1pt min.). @ -No CT interpreted by me (1pt min.). @ -None done U/S interpreted by me (1pt. min.). @ -None done What testing was considered but not performed or refused? (CT, X-rays, U/S, labs)? Why? @ -lab work and imaging - patient already pain free on my evaluation What meds were considered but not given or refused? Why? @ -None Did you discuss the management of the patient with other professionals (professionals i.e. , PA, LACE ROLLER, lab, RT, psych nurse, social media analyst, nutrition counselor, teacher, workers' compensation hearings officer, wrapper caser)? Give summary @ -No Was smoking cessation discussed for >3mins.? @ -No Was critical care preformed (if so, how long)? @ -No Were there social determinants of health that impacted care today? How? (Homelessness, low income, unemployed, alcoholism, drug addiction, transportation, low edu. Level, literacy, decrease access to med. care, custodial, rehab)? @ -No Was there de-escalation of care discussed even if they declined (Discuss DNR or withdrawal of care, Hospice)? DNR status @ -No What co-morbidities impacted this encounter? (DM, HTN, Smoking, COPD, CAD, Cancer, CVA, ARF, Chemo, Hep., AIDS, mental health diagnosis, sleep apnea, morbid obesity)? @ -None Was patient admitted / discharged? Hospital course, mention meds given and route, prescriptions, significant lab abnormalities, going to OR and other pertinent info. @Upon arrival patient is placed into room 19. She is evaluated by myself and is pain-free. Patient like to go home without any type of workup. I did discuss risks of leaving and the patient is aware however continues to want to leave as her pain is gone. I was agreeable to this. Instructed her to return for any new or worsening symptoms. Patient discharged home in stable condition Undiagnosed new problem with uncertain prognosis? @ -yes Drug Therapy requiring intensive monitoring for toxicity (Heparin, Nitro, Insuli n, Cardizem)? @ -No Were any procedures done? @ -No Diagnosis/symptom? @ -acute abd pain - resolved Acute, or Chronic, or Acute on Chronic? @ -acute Uncomplicated (without systemic symptoms) or Complicated (systemic symptoms)? @ -complicated Side effects of treatment? @ -No Exacerbation, Progression, or Severe Exacerbation? @ -No Poses a threat to life or bodily function? How? (Chest pain, USA, PA, pneumonia, PE, COPD, DKA, ARF, appy, cholecystitis, CVA, Diverticulitis, Homicidal, Suicidal, threat to staff... and all critical care pts) @ -No Disposition Clinical Impression: Abdominal pain Disposition: HOME SELF-CARE Condition: Stable Instructions (If sedation given, give patient instructions): Abdominal Pain (ED) Additional Instructions: Please return should your symptoms return Is patient prescribed a controlled substance at d/c from ED?: No Referrals: Deandre Garcia MD [Primary Care Provider] - 1-2 days Time of Disposition: 05:13
== END 2022-10-01 05:19 | disposition home or self-care (01) ==
LOC: EC 04:29
DX: R10.9 Unspecified abdominal pain (principal); I10 Essential (primary) hypertension; I48.91 Unspecified atrial fibrillation; M06.9 Rheumatoid arthritis, unspecified; Z88.2 Allergy status to sulfonamides; Z88.1 Allergy status to other antibiotic agents; Z79.899 Other long term (current) drug therapy
CPT/HCPCS: 99283

== ENCOUNTER 2023-07-03 10:19 | Emergency (ER) | payer MEDICARE, BC ==
[2023-07-03 10:30] VITALS: BP 164/89; PULSE 80; RESP 16; TEMP 97.7
--- NOTE | 2023-07-03 10:42 | ED ---
URI HPI - General Chief Complaint: Upper Respiratory Infection Stated Complaint: SOB and cough Time Seen by Provider: 07/03/23 10:41 Source: patient, RN notes reviewed Mode of arrival: ambulatory Limitations: no limitations - History of Present Illness Initial Comments: Patient is a 72-year-old female presented to ER with a chief complaint of a cough. Patient states is going on for about 6 weeks. Patient states she was seen at urgent care 2 times prior and told to come to ER for evaluation if it does not improve. Patient is endorsing wheezing, cough and shortness of breath. Patient recently was intubated for a melanoma surgery and believes this may be causing some of her cough. Denies any fevers, chills, night sweats. Patient denies any peripheral edema or chest pain. - Related Data Home Medications Medication Instructions Recorded Confirmed Acetaminophen Tab [Tylenol] 500 mg PO Q4H PRN 02/09/21 06/01/22 Rosuvastatin Calcium [Crestor] 5 mg PO HS 02/09/21 06/01/22 Loratadine [Claritin] 10 mg PO DAILY PRN 06/01/22 06/01/22 Orencia Infusion 1 dose IV QMONTHLY 06/01/22 06/01/22 Previous Rx's Medication Instructions Recorded Apixaban [Eliquis] 5 mg PO BID #60 tab 05/11/19 Metoprolol Tartrate [Lopressor] 25 mg PO BID #60 tab 06/02/22 Benzonatate [Tessalon Perles] 100 mg PO TID PRN #15 capsule 07/03/23 Allergies Allergy/AdvReac Type Severity Reaction Status Date / Time sulfamethoxazole Allergy Swelling Verified 06/01/22 15:21 [From Bactrim] trimethoprim [From Bactrim] Allergy Swelling Verified 06/01/22 15:21 levofloxacin [From Levaquin] AdvReac Unknown Verified 06/01/22 15:21 Review of Systems ROS Statement: Those systems with pertinent positive or pertinent negative responses have been documented in the HPI. ROS Other: All systems not noted in ROS Statement are negative. Past Medical History Past Medical History: Atrial Fibrillation, Hypertension, Rheumatoid Arthritis (RA) Additional Past Medical History / Comment(s): AFIB 2008,thoracoabdominal aortic aneurysm, gallstones History of Any Multi-Drug Resistant Organisms: None Reported Past Surgical History: Section Additional Past Surgical History / Comment(s): L leg vein stripping, foot surgery, left thumb surgery , aortic aneursym repair Past Anesthesia/Blood Transfusion Reactions: No Reported Reaction Past Psychological History: No Psychological Hx Reported, Depression Smoking Status: Never smoker Past Alcohol Use History: Occasional Past Drug Use History: None Reported - Past Family History Mother Family Medical History: Cancer Father Additional Family Medical History / Comment(s): gastrointestinal issues resulting in General Exam - General Exam Comments Initial Comments: Visual Physical Exam Vital signs reviewed General: Well-appearing, nontoxic, no acute distress. Head: Normocephalic, atraumatic Eyes: PERRLA, EOMI ENT: Airway patent Chest: Nonlabored breathing Skin: No visual rash, normal skin tone Neuro: Alert and oriented 3 Musculoskeletal: No gross abnormalities Limitations: no limitations Course Vital Signs 07/03/23 10:26 Temperature 97.7 F Pulse Rate 80 Respiratory 16 Rate Blood Pressure 164/89 O2 Sat by Pulse 96 Oximetry Medical Decision Making - Medical Decision Making I performed the quick note portion of the exam. Electronically signed by Erik Perez PA-C Was pt. sent in by a medical professional or institution ([facility]LA Gallegos, WAX ENGRAVER, urgent care, hospital, or jail...) When possible be specific @ -No Did you speak to anyone other than the patient for history (EMS, parent, family, police, friend...)? What history was obtained from this source @ -No Did you review nursing and triage notes (agree or disagree)? Why? @ -I reviewed and agree with nursing and triage notes Were old charts reviewed (outside hosp., previous admission, EMS record, old EKG, old radiological studies, urgent care reports/EKG's, jail records)? Report findings @ -No old charts were reviewed Differential Diagnosis (chest pain, altered mental status, abdominal pain women, abdominal pain men, vaginal bleeding, weakness, fever, dyspnea, syncope, headach e, dizziness, GI bleed, back pain, seizure, CVA, palpatations, mental health, musculoskeletal)? @ -COVID-19, RSV, influenza, pneumonia, pneumothorax, viral sinusitis this list not to be all-inclusive. EKG interpreted by me (3pts min.). @ -As above X-rays interpreted by me (1pt min.). @ -Chest x-ray interpreted by me shows no acute process. CT interpreted by me (1pt min.). @ -None done U/S interpreted by me (1pt. min.). @ -None done What testing was considered but not performed or refused? (CT, X-rays, U/S, labs)? Why? @ -None What meds were considered but not given or refused? Why? @ -None Did you discuss the management of the patient with other professionals (professionals i.e. , PA, WAX ENGRAVER, lab, RT, psych nurse, social security specialist, blanket cutting machine operator, teacher, chief accounting officer, housing case manager)? Give summary @ -No Was smoking cessation discussed for >3mins.? @ -No Was critical care preformed (if so, how long)? @ -No Were there social determinants of health that impacted care today? How? (Homeles sness, low income, unemployed, alcoholism, drug addiction, transportation, low edu. Level, literacy, decrease access to med. care, penitentiary, rehab)? @ -No Was there de-escalation of care discussed even if they declined (Discuss DNR or withdrawal of care, Hospice)? DNR status @ -No What co-morbidities impacted this encounter? (DM, HTN, Smoking, COPD, CAD, Cancer, CVA, ARF, Chemo, Hep., AIDS, mental health diagnosis, sleep apnea, morbid obesity)? @ -None Was patient admitted / discharged? Hospital course, mention meds given and route, prescriptions, significant lab abnormalities, going to OR and other pertinent info. @ -Discharge. Patient is a 72-year-old female presented to ER with a chief complaint of cough. Vitals stable. History and physical exam were completed. Patient was in no signs of acute distress. Patient did have a chronic dry cough and mild wheezing bilaterally. Patient does use a albuterol inhaler as needed. Labs obtained in the ER were unremarkable. Chest x-ray without signs of acute process. COVID, RSV, influenza negative. EKG showed no evidence of infarct or ischemia. Discussed lab and imaging findings with patient. I advised her to follow-up with PCP. Patient prescribed Tessalon Perles. Return parameters were discussed. Patient be discharged in stable condition with follow-up to PCP. Patient expressed understanding and agreement with care plan. Undiagnosed new problem with uncertain prognosis? @ -No Drug Therapy requiring intensive monitoring for toxicity (Heparin, Nitro, Insulin, Cardizem)? @ -No Were any procedures done? @ -No Diagnosis/symptom? @ -Cough Acute, or Chronic, or Acute on Chronic? @ -Chronic Uncomplicated (without systemic symptoms) or Complicated (systemic symptoms)? @ -Uncomplicated Side effects of treatment? @ -No Exacerbation, Progression, or Severe Exacerbation? @ -No Poses a threat to life or bodily function? How? (Chest pain, USA, [place], pneumonia, PE, COPD, DKA, ARF, appy, cholecystitis, CVA, Diverticulitis, Homicidal, Suicidal, threat to staff... and all critical care pts) @ -No - Lab Data Result diagrams: 07/03/23 11:38 07/03/23 11:38 Lab Results 07/03/23 07/03/23 07/03/23 Range/Units 11:38 11:38 11:38 WBC 6.4 (3.8-10.6) k/uL RBC 4.30 (3.80-5.40) m/uL Hgb 12.8 (11.4-16.0) gm/dL Hct 40.3 (34.0-46.0) % MCV 93.9 (80.0-100.0) fL MCH 29.9 (25.0-35.0) pg MCHC 31.8 (31.0-37.0) g/dL RDW 13.1 (11.5-15.5) % Plt Count 219 (150-450) k/uL MPV 9.0 PT (10.0-12.5) sec INR (<1.2) APTT (22.0-30.0) sec Sodium 140 (137-145) mmol/L Potassium 3.9 (3.5-5.1) mmol/L Chloride 108 H (98-107) mmol/L Carbon Dioxide 26 (22-30) mmol/L Anion Gap 6 mmol/L BUN 12 (7-17) mg/dL Creatinine 0.59 (0.52-1.04) mg/dL Est GFR (CKD-EPI)AfAm >90 (>60 ml/min/1.73 sqM) Est GFR (CKD-EPI)NonAf >90 (>60 ml/min/1.73 sqM) Glucose 96 (74-99) mg/dL Plasma Lactic Acid Ross (0.7-2.0) mmol/L Calcium 9.1 (8.4-10.2) mg/dL Total Bilirubin 0.6 (0.2-1.3) mg/dL AST 23 (14-36) U/L ALT 19 (4-34) U/L Alkaline Phosphatase 78 (38-126) U/L Troponin I (0.000-0.034) ng/mL NT-Pro-B Natriuret Pep 113 pg/mL Total Protein 7.1 (6.3-8.2) g/dL Albumin 4.3 (3.5-5.0) g/dL Influenza Type A (PCR) Not Detected (Not Detectd) Influenza Type B (PCR) Not Detected (Not Detectd) RSV (PCR) Not Detected (Not Detectd) SARS-CoV-2 (PCR) Not Detected (Not Detectd) 07/03/23 07/03/23 07/03/23 Range/Units 11:38 11:38 11:39 WBC (3.8-10.6) k/uL RBC (3.80-5.40) m/uL Hgb (11.4-16.0) gm/dL Hct (34.0-46.0) % MCV (80.0-100.0) fL MCH (25.0-35.0) pg MCHC (31.0-37.0) g/dL RDW (11.5-15.5) % Plt Count (150-450) k/uL MPV PT 12.3 (10.0-12.5) sec INR 1.1 (<1.2) APTT 28.7 (22.0-30.0) sec Sodium (137-145) mmol/L Potassium (3.5-5.1) mmol/L Chloride (98-107) mmol/L Carbon Dioxide (22-30) mmol/L Anion Gap mmol/L BUN (7-17) mg/dL Creatinine (0.52-1.04) mg/dL Est GFR (CKD-EPI)AfAm (>60 ml/min/1.73 sqM) Est GFR (CKD-EPI)NonAf (>60 ml/min/1.73 sqM) Glucose (74-99) mg/dL Plasma Lactic Acid Ross 0.9 (0.7-2.0) mmol/L Calcium (8.4-10.2) mg/dL Total Bilirubin (0.2-1.3) mg/dL AST (14-36) U/L ALT (4-34) U/L Alkaline Phosphatase (38-126) U/L Troponin I <0.012 (0.000-0.034) ng/mL NT-Pro-B Natriuret Pep pg/mL Total Protein (6.3-8.2) g/dL Albumin (3.5-5.0) g/dL Influenza Type A (PCR) (Not Detectd) Influenza Type B (PCR) (Not Detectd) RSV (PCR) (Not Detectd) SARS-CoV-2 (PCR) (Not Detectd) - EKG Data -: EKG Interpreted by Sd EKG Comments: EKG taken at 11: 32 shows normal sinus rhythm with no acute ST segment or T wave abnormalities. Ventricular rate 80, DC interval 124, QRS duration 88, QT/QTc 373/409. - Radiology Data Radiology results: report reviewed, image reviewed Disposition Clinical Impression: Cough Disposition: HOME SELF-CARE Condition: Stable Additional Instructions: Follow-up with primary care physician in the next 1 to 2 days. Return to ER for any new or worsening symptoms. Prescriptions: Benzonatate [Tessalon Perles] 100 mg PO TID PRN #15 capsule PRN Reason: Cough Is patient prescribed a controlled substance at d/c from ED?: No Referrals: Deandre Garcia MD [Primary Care Provider] - 1-2 days Time of Disposition: 12:54
[2023-07-03 11:51] LABS: HCT 40.3 % (34.0-46.0); HGB 12.8 gm/dL (11.4-16.0); MCH 29.9 pg (25.0-35.0); MCHC 31.8 g/dL (31.0-37.0); MCV 93.9 fL (80.0-100.0); Platelet Count 219 k/uL (150-450); RDW 13.1 % (11.5-15.5); WBC 6.4 k/uL (3.8-10.6)
--- NOTE | 2023-07-03 11:54 | XR ---
EXAMINATION TYPE: XR chest 2V DATE OF EXAM: 07/03/2023 COMPARISON: 06/01/2022 HISTORY: Shortness of breath TECHNIQUE: Frontal and lateral views of the chest are obtained. FINDINGS: Scattered senescent parenchymal changes noted. Hyperinflation compatible with COPD. No evidence for infiltrate. No evidence for atelectasis. Heart size is stable. Mediastinal structures are stable and grossly unremarkable. No evidence for hilar prominence. Degenerative changes dorsal spine. IMPRESSION: 1. No evidence for acute pulmonary disease.
[2023-07-03 12:05] LABS: INR 1.1 (<1.2); Partial Thromboplastin Time 28.7 sec (22.0-30.0); Prothrombin Time 12.3 sec (10.0-12.5)
[2023-07-03 12:15] LABS: ALT 19 U/L (4-34); AST 23 U/L (14-36); African American GFR (CKD) >90 (>60 ml/min/1.73 sqM); Albumin 4.3 g/dL (3.5-5.0); Alkaline Phosphatase 78 U/L (38-126); Anion Gap 6 mmol/L; Blood Urea Nitrogen 12 mg/dL (7-17); Calcium 9.1 mg/dL (8.4-10.2); Carbon Dioxide 26 mmol/L (22-30); Chloride 108 mmol/L (98-107); Glucose 96 mg/dL (74-99); Non-African American GFR(CKD) >90 (>60 ml/min/1.73 sqM); Potassium 3.9 mmol/L (3.5-5.1); Sodium 140 mmol/L (137-145); Total Bilirubin 0.6 mg/dL (0.2-1.3); Total Protein 7.1 g/dL (6.3-8.2)
[2023-07-03 12:23] LABS: NT-Pro-B-Type Natriuretic Pept 113 pg/mL
== END 2023-07-03 13:08 | disposition home or self-care (01) ==
LOC: EC 10:19
DX: R05.9 Cough, unspecified (principal); I10 Essential (primary) hypertension; Z20.822 Contact with and (suspected) exposure to COVID-19; Z79.899 Other long term (current) drug therapy; Z88.1 Allergy status to other antibiotic agents; Z88.2 Allergy status to sulfonamides
CPT/HCPCS: 36415; 71046; 80053; 83605; 83880; 84484; 85027; 85610; 85730; 87636; 93005; 99285

== ENCOUNTER → 2023-07-10 | Outpatient (CLI) | payer MEDICARE, BC ==
[2023-07-10 09:54] LABS: African American GFR (CKD) >90 (>60 ml/min/1.73 sqM); Blood Urea Nitrogen 21 mg/dL (7-17); Non-African American GFR(CKD) 90 (>60 ml/min/1.73 sqM)
--- NOTE | 2023-07-10 13:24 | CT ---
EXAMINATION TYPE: CT chest w con DATE OF EXAM: 07/10/2023 COMPARISON: None HISTORY: Pulmonary fibrosis and chronic cough. CT DLP: 161.2 mGycm Automated exposure control for dose reduction was used. CONTRAST: CT scan of the chest is performed with IV Contrast, patient injected with 100ml mL of Isovue 370. FINDINGS: LUNGS: The lungs are grossly clear, there is no concerning parenchymal mass or nodule identified. Basilar parenchymal scarring. There is no pleural effusion or pneumothorax seen. The tracheobronchia l tree is patent. MEDIASTINUM: There are no greater than 1 cm hilar or mediastinal lymph nodes. No pericardial effusi on is seen. Ascending thoracic aortic aneurysm measuring 5.1 cm AP dimension. Changes of prior median sternotomy. Ascending thoracic aorta is of normal caliber. Mild cardiomegaly. UPPER ABDOMEN: No significant abnormality appreciated. OTHER: No additional significant abnormality is seen. IMPRESSION: 1. Descending thoracic aortic aneurysm. 2. Mild COPD without evidence of fibrosis. 3. Basilar parenchymal scarring.
== END | disposition home or self-care (01) ==
LOC: RADCTMAIN 09:22
PROVIDERS: ATTEND Internal Medicine Geriatric Medicine
DX: J84.10 Pulmonary fibrosis, unspecified (principal); I71.23 Aneurysm of the descending thoracic aorta, without rupture; J44.9 Chronic obstructive pulmonary disease, unspecified
CPT/HCPCS: 82565; 84520; 71260; 36415; Q9967

== ENCOUNTER 2023-07-19 13:14 | Emergency (ER) | payer MEDICARE, BC ==
--- NOTE | 2023-07-19 13:20 | ED ---
Back Pain HPI - General Source: patient, RN notes reviewed Mode of arrival: ambulatory Limitations: no limitations <Nancy Palmer - Last Filed: 07/19/23 13:15> - General Source: RN notes reviewed, old records reviewed Mode of arrival: ambulatory Limitations: no limitations - History of Present Illness MD Complaint: back pain Similar Symptoms Previously: Yes Place: home Radiation: none Severity: moderate Severity scale (1-10): 6 Quality: sharp Consistency: constant Improves With: none Worsens With: none Context: turning/twisting, bending Associated Symptoms: denies other symptoms <Dayday Crocker - Last Filed: 07/28/23 18:45> - General Chief Complaint: Back Pain/Injury Stated Complaint: back pain Time Seen by Provider: 07/19/23 13:15 - History of Present Illness Initial Comments: This is a 73 year old female who presents to the emergency department for back pain. This is primarily left sided. This started 5-7 days ago. She was treated for a UTI a couple of weeks ago. Also reports lower abdominal pressure. She has minor nausea but no vomiting. Denies any hx of kidney stones. (Nancy Palmer) This is a 73-year-old female to the ER for evaluation of back pain severe back pain with recent treatment of urinary tract infection. No travel history or sick contacts no other complaints (Dayday Crocker) - Related Data Home Medications Medication Instructions Recorded Confirmed Acetaminophen Tab [Tylenol] 500 mg PO Q4H PRN 02/09/21 06/01/22 Rosuvastatin Calcium [Crestor] 5 mg PO HS 02/09/21 06/01/22 Loratadine [Claritin] 10 mg PO DAILY PRN 06/01/22 06/01/22 [facility] 1 dose IV QMONTHLY 06/01/22 06/01/22 Previous Rx's Medication Instructions Recorded Apixaban [Eliquis] 5 mg PO BID #60 tab 05/11/19 Metoprolol Tartrate [Lopressor] 25 mg PO BID #60 tab 06/02/22 Benzonatate [Tessalon Perles] 100 mg PO TID PRN #15 capsule 07/03/23 Allergies Allergy/AdvReac Type Severity Reaction Status Date / Time sulfamethoxazole Allergy Swelling Verified 07/19/23 13:50 [From Bactrim] trimethoprim [From Bactrim] Allergy Swelling Verified 07/19/23 13:50 levofloxacin [From Levaquin] AdvReac Unknown Verified 07/19/23 13:50 Review of Systems ROS Other: All systems not noted in ROS Statement are negative. <Nancy Palmer - Last Filed: 07/19/23 13:15> ROS Other: All systems not noted in ROS Statement are negative. <Dayday Crocker - Last Filed: 07/28/23 18:45> ROS Statement: Those systems with pertinent positive or pertinent negative responses have been documented in the HPI. Past Medical History Past Medical History: Atrial Fibrillation, Hypertension, Rheumatoid Arthritis (RA) Additional Past Medical History / Comment(s): AFIB 2008,thoracoabdominal aortic aneurysm, gallstones History of Any Multi-Drug Resistant Organisms: None Reported Past Surgical History: Section Additional Past Surgical History / Comment(s): L leg vein stripping, foot surgery, left thumb surgery , aortic aneursym repair Past Anesthesia/Blood Transfusion Reactions: No Reported Reaction Past Psychological History: No Psychological Hx Reported, Depression Smoking Status: Never smoker Past Alcohol Use History: Occasional Past Drug Use History: None Reported - Past Family History Mother Family Medical History: Cancer Father Additional Family Medical History / Comment(s): gastrointestinal issues resulting in <Nancy Palmer - Last Filed: 07/19/23 13:15> General Exam <Nancy Palmer - Last Filed: 07/19/23 13:15> General appearance: alert, in no apparent distress Head exam: Present: atraumatic, normocephalic, normal inspection Eye exam: Present: normal appearance, PERRL, EOMI. Absent: scleral icterus, conjunctival injection, periorbital swelling ENT exam: Present: normal exam, mucous membranes moist Neck exam: Present: normal inspection. Absent: tenderness, meningismus, lymphadenopathy Respiratory exam: Present: normal lung sounds bilaterally. Absent: respiratory distress, wheezes, rales, rhonchi, stridor Cardiovascular Exam: Present: regular rate, normal rhythm, normal heart sounds. Absent: systolic murmur, diastolic murmur, rubs, gallop, clicks GI/Abdominal exam: Present: soft, normal bowel sounds. Absent: distended, tenderness, guarding, rebound, rigid Extremities exam: Present: normal inspection, full ROM, normal capillary refill. Absent: tenderness, pedal edema, joint swelling, calf tenderness Back exam: Present: normal inspection Neurological exam: Present: alert, oriented X3, CN II-XII intact Psychiatric exam: Present: normal affect, normal mood Skin exam: Present: warm, dry, intact, normal color. Absent: rash <Dayday Crocker - Last Filed: 07/28/23 18:45> - General Exam Comments Initial Comments: Visual Physical Exam Vital signs reviewed General: Well-appearing, nontoxic, no acute distress. Head: Normocephalic, atraumatic Eyes: PERRLA, EOMI ENT: Airway patent Chest: Nonlabored breathing Skin: No visual rash, normal skin tone Neuro: Alert and oriented 3 Musculoskeletal: No gross abnormalities (Nancy Palmer) Course <Dayday Crocker Filed: 07/28/23 18:45> Vital Signs 07/19/23 07/19/23 13:49 17:31 Temperature 98.4 F Pulse Rate 79 80 Respiratory 20 18 Rate Blood Pressure 142/89 136/72 O2 Sat by Pulse 96 Oximetry - Reevaluation(s) Reevaluation #1: Medical records reviewed (Dayday Crocker) Reevaluation #2: Patient symptoms unchanged (Dayday Crocker) Reevaluation #3: Patient informed of results and questions answered (Dayday Crocker) Reevaluation #4: Was pt. sent in by a medical professional or institution (, PA, [facility], urgent care, hospital, or shelter...) When possible be specific @ -no Did you speak to anyone other than the patient for history (EMS, parent, family, police, friend...)? What history was obtained from this source @ -no Did you review nursing and triage notes (agree or disagree)? Why? @ -agree Are old charts reviewed (outside hosp., previous admission, EMS record, old EKG, old radiological studies, urgent care reports/EKG's, shelter records)? Report findings @ -yes Differential Diagnosis (chest pain, altered mental status, abdominal pain women, abdominal pain men, vaginal bleeding, weakness, fever, dyspnea, syncope, headache, dizziness, GI bleed, back pain, seizure, CVA, palpatations, mental health, musculoskeletal)? @ -prior EKG interpreted by me (3pts min.). @ -yes X-rays interpreted by me (1pt min.). @ -no CT interpreted by me (1pt min.). @ -Yes negative for acute disease U/S interpreted by me (1pt. min.). @ -no What testing was considered but not performed or refused? (CT, X-rays, U/S, labs)? Why? @ -none What meds were considered but not given or refused? Why? @ -none Did you discuss the management of the patient with other professionals (professionals i.e. , PA, [facility], lab, RT, psych nurse, social service assistant, construction materials tester, teacher, probation officer, upper caser)? Give summary @ -no Was smoking cessation discussed for >3mins.? @ -no Was critical care preformed (if so, how long)? @ -no Were there social determinants of health that impacted care today? How? (Homelessness, low income, unemployed, alcoholism, drug addiction, transport ation, low edu. Level, literacy, decrease access to med. care, fdc, rehab)? @ -none Was there de-escalation of care discussed even if they declined (Discuss DNR or withdrawal of care, Hospice)? DNR status @ -no What co-morbidities impacted this encounter? (DM, HTN, Smoking, COPD, CAD, Cancer, CVA, ARF, Chemo, Hep., AIDS, mental health diagnosis, sleep apnea, morbid obesity)? @ -none Was patient admitted / discharged? Hospital course, mention meds given and route, prescriptions, significant lab abnormalities, going to OR and other pertinent info. @ - 73 female to the ER for evaluation, patient has a for evaluation of back pain no acute cause found, pain is controlled and can be discharged home Discharge Undiagnosed new problem with uncertain prognosis? @ -no Drug Therapy requiring intensive monitoring for toxicity (Heparin, Nitro, Insulin, Cardizem)? @ -no Were any procedures done? @ -no Diagnosis/symptom? @ -Back pain Acute, or Chronic, or Acute on Chronic? @ -Acute Uncomplicated (without systemic symptoms) or Complicated (systemic symptoms)? @ -Complicated Side effects of treatment? @ -no Exacerbation, Progression, or Severe Exacerbation? @ -exacerbation Poses a threat to life or bodily function? How? (Chest pain, USA, ME, pneumonia, PE, COPD, DKA, ARF, appy, cholecystitis, CVA, Diverticulitis, Homicidal, Suicidal, threat to staff... and all critical care pts) @ -yes with significant back pain (Dayday Crocker) Reevaluation #5: Differential Back Pain: Strain, zoster, cauda equina syndrome, epidural abscess, vertebral osteomyelitis, discitis, fracture, subluxation, disc herniation, DJD, spinal stenosis, dissection, AAA, pancreatitis, peptic ulcer disease, pyelonephritis, kidney stone, this is not meant to be an all-inclusive list. (Dayday Crocker) Medical Decision Making <Nancy Palmer - Last Filed: 07/19/23 13:15> - Lab Data Result diagrams: 07/19/23 14:47 07/19/23 14:47 - Radiology Data Radiology results: report reviewed (CT of the abdomen and pelvis are negative for acute disease), image reviewed <Dayday Crocker - Last Filed: 07/28/23 18:45> - Medical Decision Making I performed the QuickNote portion of this chart. Signed Nancy Palmer PA-C. (Nancy Palmer) 73 female to the ER for evaluation, patient has a for evaluation of back pain no acute cause found, pain is controlled and can be discharged home (Dayday Crocker) - Lab Data Lab Results 07/19/23 07/19/23 07/19/23 Range/Units 13:57 14:47 14:47 WBC 6.1 (3.8-10.6) k/uL RBC 4.56 (3.80-5.40) m/uL Hgb 13.6 (11.4-16.0) gm/dL Hct 43.1 (34.0-46.0) % MCV 94.4 (80.0-100.0) fL MCH 29.7 (25.0-35.0) pg MCHC 31.5 (31.0-37.0) g/dL RDW 13.2 (11.5-15.5) % Plt Count 208 (150-450) k/uL MPV 8.2 Neutrophils % 47 % Lymphocytes % 26 % Monocytes % 6 % Eosinophils % 18 % Basophils % 1 % Neutrophils # 2.8 (1.3-7.7) k/uL Lymphocytes # 1.6 (1.0-4.8) k/uL Monocytes # 0.4 (0-1.0) k/uL Eosinophils # 1.1 H (0-0.7) k/uL Basophils # 0.1 (0-0.2) k/uL Sodium 140 (137-145) mmol/L Potassium 3.9 (3.5-5.1) mmol/L Chloride 106 (98-107) mmol/L Carbon Dioxide 24 (22-30) mmol/L Anion Gap 10 mmol/L BUN 14 (7-17) mg/dL Creatinine 0.59 (0.52-1.04) mg/dL Est GFR (CKD-EPI)AfAm >90 (>60 ml/min/1.73 sqM) Est GFR (CKD-EPI)NonAf >90 (>60 ml/min/1.73 sqM) Glucose 94 (74-99) mg/dL Plasma Lactic Acid Ross (0.7-2.0) mmol/L Calcium 9.5 (8.4-10.2) mg/dL Total Bilirubin 0.5 (0.2-1.3) mg/dL AST 24 (14-36) U/L ALT 19 (4-34) U/L Alkaline Phosphatase 76 (38-126) U/L Total Protein 7.1 (6.3-8.2) g/dL Albumin 4.4 (3.5-5.0) g/dL Urine Color Light Yellow Urine Appearance Clear (Clear) Urine pH 6.0 (5.0-8.0) Ur Specific Comfort 1.004 (1.001-1.035) Urine Protein Negative (Negative) Urine Glucose (UA) Negative (Negative) Urine Ketones Negative (Negative) Urine Blood Moderate H (Negative) Urine Nitrite Negative (Negative) Urine Bilirubin Negative (Negative) Urine Urobilinogen <2.0 (<2.0) mg/dL Ur Leukocyte Esterase Small H (Negative) Urine RBC 7 H (0-5) /hpf Urine WBC 1 (0-5) /hpf Ur Squamous Epith Cells 1 (0-4) /hpf Urine Bacteria Rare H (None) /hpf Urine Mucus Rare H (None) /hpf 07/19/23 Range/Units 14:47 WBC (3.8-10.6) k/uL RBC (3.80-5.40) m/uL Hgb (11.4-16.0) gm/dL Hct (34.0-46.0) % MCV (80.0-100.0) fL MCH (25.0-35.0) pg MCHC (31.0-37.0) g/dL RDW (11.5-15.5) % Plt Count (150-450) k/uL MPV Neutrophils % % Lymphocytes % % Monocytes % % Eosinophils % % Basophils % % Neutrophils # (1.3-7.7) k/uL Lymphocytes # (1.0-4.8) k/uL Monocytes # (0-1.0) k/uL Eosinophils # (0-0.7) k/uL Basophils # (0-0.2) k/uL Sodium (137-145) mmol/L Potassium (3.5-5.1) mmol/L Chloride (98-107) mmol/L Carbon Dioxide (22-30) mmol/L Anion Gap mmol/L BUN (7-17) mg/dL Creatinine (0.52-1.04) mg/dL Est GFR (CKD-EPI)AfAm (>60 ml/min/1.73 sqM) Est GFR (CKD-EPI)NonAf (>60 ml/min/1.73 sqM) Glucose (74-99) mg/dL Plasma Lactic Acid Ross 1.3 (0.7-2.0) mmol/L Calcium (8.4-10.2) mg/dL Total Bilirubin (0.2-1.3) mg/dL AST (14-36) U/L ALT (4-34) U/L Alkaline Phosphatase (38-126) U/L Total Protein (6.3-8.2) g/dL Albumin (3.5-5.0) g/dL Urine Color Urine Appearance (Clear) Urine pH (5.0-8.0) Ur Specific Comfort (1.001-1.035) Urine Protein (Negative) Urine Glucose (UA) (Negative) Urine Ketones (Negative) Urine Blood (Negative) Urine Nitrite (Negative) Urine Bilirubin (Negative) Urine Urobilinogen (<2.0) mg/dL Ur Leukocyte Esterase (Negative) Urine RBC (0-5) /hpf Urine WBC (0-5) /hpf Ur Squamous Epith Cells (0-4) /hpf Urine Bacteria (None) /hpf Urine Mucus (None) /hpf Disposition <Nancy Palmer - Last Filed: 07/19/23 13:15> Is patient prescribed a controlled substance at d/c from ED?: No Time of Disposition: 16:00 <Dayday Crocker - Last Filed: 07/28/23 18:45> Clinical Impression: Mid back pain Disposition: HOME SELF-CARE Condition: Good Instructions (If sedation given, give patient instructions): Acute Low Back Pain (ED) Referrals: Deandre Garcia MD [Primary Care Provider] - 1-2 days
[2023-07-19 14:04] VITALS: TEMP 98.4
[2023-07-19 14:11] LABS: Appearance,Urine Clear (Clear); Bacteria,Urine Rare /hpf; Bilirubin,Urine Negative (Negative); Blood,Urine Moderate (Negative); Color,Urine Light Yellow; Glucose,Urine (UA) Negative (Negative); Ketones,Urine Negative (Negative); Leukocyte Esterase,Urine Small (Negative); Mucus,Urine Rare /hpf; Nitrite,Urine Negative (Negative); Protein,Urine Negative (Negative); RBC,Urine 7 /hpf (0-5); Specific Gravity,Urine 1.004 (1.001-1.035); Squamous Epithelial Cell,Urine 1 /hpf (0-4); Urobilinogen,Urine <2.0 mg/dL (<2.0); WBC,Urine 1 /hpf (0-5)
[2023-07-19 14:57] LABS: Basophils # (A) 0.1 k/uL (0-0.2); Basophils % (A) 1 %; Eosinophils # (A) 1.1 k/uL (0-0.7); Eosinophils % (A) 18 %; HCT 43.1 % (34.0-46.0); HGB 13.6 gm/dL (11.4-16.0); Lymphocytes # (A) 1.6 k/uL (1.0-4.8); Lymphocytes % (A) 26 %; MCH 29.7 pg (25.0-35.0); MCHC 31.5 g/dL (31.0-37.0); MCV 94.4 fL (80.0-100.0); Mean Platelet Volume 8.2; Monocytes # (A) 0.4 k/uL (0-1.0); Monocytes % (A) 6 %; Neutrophils # (A) 2.8 k/uL (1.3-7.7); Neutrophils % (A) 47 %; Platelet Count 208 k/uL (150-450); RBC 4.56 m/uL (3.80-5.40); RDW 13.2 % (11.5-15.5); WBC 6.1 k/uL (3.8-10.6)
[2023-07-19 15:05] LABS: ALT 19 U/L (4-34); AST 24 U/L (14-36); African American GFR (CKD) >90 (>60 ml/min/1.73 sqM); Albumin 4.4 g/dL (3.5-5.0); Alkaline Phosphatase 76 U/L (38-126); Anion Gap 10 mmol/L; Blood Urea Nitrogen 14 mg/dL (7-17); Calcium 9.5 mg/dL (8.4-10.2); Carbon Dioxide 24 mmol/L (22-30); Chloride 106 mmol/L (98-107); Glucose 94 mg/dL (74-99); Non-African American GFR(CKD) >90 (>60 ml/min/1.73 sqM); Potassium 3.9 mmol/L (3.5-5.1); Sodium 140 mmol/L (137-145); Total Bilirubin 0.5 mg/dL (0.2-1.3); Total Protein 7.1 g/dL (6.3-8.2)
--- NOTE | 2023-07-19 15:52 | CT ---
EXAMINATION: CT ABDOMEN AND PELVIS WITHOUT IV CONTRAST DATE OF EXAMINATION: 07/19/2023. COMPARISON: None available. INDICATION: Left flank pain. PROCEDURE: Axial CT of the abdomen and pelvis was performed with sagittal and coronal reformatted i mages without contrast enhancement. The exam is limited because some types of pathology may not be ad equately demonstrated due to lack of contrast enhancement. CT dose lowering techniques were used, to include: automated exposure control, adjustment for patient size, and/or use of iterative reconstruct ion. FINDINGS: LOWER CHEST : Partially visualized right middle lobe shows likely significant atelectasis which is i ncompletely evaluated. There are several bands of opacity left lung base which are likely atelectasis or scarring. The heart is moderately to significantly enlarged ABDOMEN: Liver and Biliary system: Normal. Adrenal glands: Normal. Kidneys and ureters: There are no renal stones or hydronephrosis. No ureteral stones are present.. Spleen: Normal. Pancreas: Normal. Gallbladder: Several calcified gallstones are seen in the fundal region of the gallbladder.. Lymph nodes, Peritoneum and mesentery: There is no mesenteric or retroperitoneal lymphadenopathy. Gastrointestinal tract: There are no dilated loops of bowel or free intraperitoneal air. . The appe ndix is normal. There is moderate sigmoid colonic diverticulosis without evidence of diverticulitis. Aorta/IVC: No aortic aneurysm.. IVC normal. Abdominal wall: Normal. PELVIS: Fluid: There is no free fluid in the pelvis. Lymph Nodes: There is no pelvic or inguinal lymphadenopathy.. Urinary bladder: Normal. BONES: Scattered degenerative disc and facet changes are seen throughout the spine. There are no acu te osseous abnormalities. ADDITIONAL SIGNIFICANT FINDINGS: None. IMPRESSION: 1. No renal stones or hydronephrosis.. 2. No bowel obstruction or appendicitis. 3. Diverticulosis without evidence of diverticulitis. 4. Cholelithiasis.
[2023-07-19] MEDS: traMADol 50 MG STARTER PACK 3 TAB BTL PO STA (17:26)
[2023-07-19] MEDS: IBUPROFEN 600 MG STARTER PACK 4 TAB BTL PO STA (17:27)
[2023-07-19 17:33] VITALS: BP 136/72; PULSE 80; RESP 18
== END 2023-07-19 17:32 | disposition home or self-care (01) ==
LOC: EC 13:14
DX: K80.20 Calculus of gallbladder without cholecystitis without obstruction (principal); I10 Essential (primary) hypertension; I48.91 Unspecified atrial fibrillation; Z79.899 Other long term (current) drug therapy; Z88.2 Allergy status to sulfonamides; Z88.1 Allergy status to other antibiotic agents; Z88.8 Allergy status to other drugs, medicaments and biological substances
CPT/HCPCS: 36415; 74176; 80053; 81001; 83605; 85025; 99284

== ENCOUNTER → 2024-02-24 | Outpatient (CLI) | payer MEDICARE, BC ==
--- NOTE | 2024-02-24 12:11 | XR ---
EXAMINATION TYPE: XR abdomen 1V DATE OF EXAM: 02/24/2024 COMPARISON: NONE HISTORY: Lower abdominal pain TECHNIQUE: One view abdominal series FINDINGS: The curvature of the spine with multilevel degenerative disc disease. Bowel gas pattern nonspecific w ith moderate to large amount of stool burden. Vascular calcifications. Arthropathy hips and sclerosis of the pubic symphysis. Assessment for calcifications limited due to bowel content. IMPRESSION: 1. Correlate for constipation. [facility], , 02/24/2024 12:08 PM
== END | disposition home or self-care (01) ==
LOC: RADXRMAIN 11:42
PROVIDERS: ATTEND Registered Nurse Gerontology
DX: R10.84 Generalized abdominal pain
CPT/HCPCS: 74018

== ENCOUNTER 2024-06-12 09:59 | Observation (INO) | payer MEDICARE, BC ==
--- NOTE | 2024-06-12 10:32 | ED ---
General Adult HPI - General Chief complaint: Chest Pain Stated complaint: Abd/Back pain Time Seen by Provider: 06/12/24 10:28 Source: patient, RN notes reviewed Mode of arrival: ambulatory Limitations: no limitations - History of Present Illness Initial comments: 73-year-old female with history of ascending aortic aneurysm presenting for back pain x 5 hours. States she woke up at 5 AM with a clenching pain in the mid back that now radiates to the epigastric area. Patient also endorses nausea. Denies chest pain, shortness of breath. She has a history of ascending aortic aneurysm that was surgically repaired by Dr. Reno 2 years ago however con tinues to follow with him for routine screenings. Denies injury/trauma. States she was very fatigued yesterday and felt as though she may be constipated and tried MiraLAX with little relief. States she had a small bowel movement yesterday and this morning. States she does have history of pancreatitis. She takes Eliquis, Cardizem, and a statin for atrial fibrillation and hypertension. - Related Data Home Medications Medication Instructions Recorded Confirmed Acetaminophen Tab [Tylenol] 500 mg PO Q6H PRN 02/09/21 06/12/24 Rosuvastatin Calcium [Crestor] 5 mg PO HS@2200 02/09/21 06/12/24 Orencia Infusion 1 dose IV Q14D 06/01/22 06/12/24 Apixaban [Eliquis] 5 mg PO BID@1000,2200 06/12/24 06/12/24 Diltiazem Oral [Cardizem Oral] 60 mg PO BID@1000,2200 06/12/24 06/12/24 Allergies Allergy/AdvReac Type Severity Reaction Status Date / Time sulfamethoxazole Allergy Anaphylaxis Verified 06/12/24 11:31 [From Bactrim] trimethoprim [From Bactrim] Allergy Swelling Verified 06/12/24 11:31 levofloxacin [From Levaquin] AdvReac swollen Verified 06/12/24 11:31 throat, difficulty swallowing, Nerve twitching Review of Systems ROS Statement: Those systems with pertinent positive or pertinent negative responses have been documented in the HPI. ROS Other: All systems not noted in ROS Statement are negative. Past Medical History Past Medical History: Atrial Fibrillation, Hypertension, Rheumatoid Arthritis (RA) Additional Past Medical History / Comment(s): AFIB 2008,thoracoabdominal aortic aneurysm, gallstones History of Any Multi-Drug Resistant Organisms: None Reported Past Surgical History: Section Additional Past Surgical History / Comment(s): L leg vein stripping, foot surgery, left thumb surgery , aortic aneursym repair Past Anesthesia/Blood Transfusion Reactions: No Reported Reaction Past Psychological History: No Psychological Hx Reported, Depression Smoking Status: Never smoker Past Alcohol Use History: Occasional Past Drug Use History: None Reported - Past Family History Mother Family Medical History: Cancer Father Additional Family Medical History / Comment(s): gastrointestinal issues resulting in General Exam Limitations: no limitations General appearance: alert, in no apparent distress Head exam: Present: atraumatic, normocephalic, normal inspection Respiratory exam: Present: normal lung sounds bilaterally. Absent: respiratory distress, wheezes, rales, rhonchi, stridor, chest wall tenderness, accessory muscle use Cardiovascular Exam: Present: regular rate, normal rhythm, normal heart sounds. Absent: systolic murmur, diastolic murmur, rubs, gallop, clicks GI/Abdominal exam: Present: soft, normal bowel sounds. Absent: distended, tenderness, guarding, rebound, rigid Extremities exam: Present: normal inspection, full ROM, normal capillary refill. Absent: tenderness, pedal edema, joint swelling, calf tenderness Back exam: Present: normal inspection, full ROM. Absent: tenderness, CVA tend erness (R), CVA tenderness (L), rash noted Neurological exam: Present: alert, oriented X3 Psychiatric exam: Present: normal affect, normal mood Skin exam: Present: warm, dry, intact, normal color. Absent: rash Course Vital Signs 06/12/24 06/12/24 06/12/24 10:04 10:57 12:20 Temperature 98.5 F 97.6 F Pulse Rate 83 73 67 Respiratory 20 21 22 Rate Blood Pressure 131/86 157/77 135/79 O2 Sat by Pulse 96 98 98 Oximetry 06/12/24 14:21 Temperature Pulse Rate 70 Respiratory 17 Rate Blood Pressure 145/87 O2 Sat by Pulse 92 L Oximetry EKG Findings - EKG Results: EKG: interpreted by ERMD (EKG reveals normal sinus rhythm with low QRS voltage and inverted T waves in leads V1, V2, and V3. Ventricular rate 69 bpm, MS interval 153, QRS duration 92, QT/QTc 371/391) Medical Decision Making - Medical Decision Making Was pt. sent in by a medical professional or institution (CARLA Gallegos, CYBER ANALYST, urgent care, hospital, or prison...) When possible be specific @ -No Did you speak to anyone other than the patient for history (EMS, parent, family, police, friend...)? What history was obtained from this source @ -No Did you review nursing and triage notes (agree or disagree)? Why? @ -I reviewed and agree with nursing and triage notes Were old charts reviewed (outside hosp., previous admission, EMS record, old EKG, old radiological studies, urgent care reports/EKG's, prison records)? Report findings @ -No old charts were reviewed Differential Diagnosis (chest pain, altered mental status, abdominal pain women, abdominal pain men, vaginal bleeding, weakness, fever, dyspnea, syncope, headache, dizziness, GI bleed, back pain, seizure, CVA, palpatations, mental health, musculoskeletal)? @ -Differential Back Pain: Strain, zoster, cauda equina syndrome, epidural abscess, vertebral osteomyelitis, discitis, fracture, subluxation, disc herniation, DJD, spinal stenosis, dissection, AAA, pancreatitis, peptic ulcer disease, pyelonephritis, kidney stone, this is not meant to be an all-inclusive list. EKG interpreted by me (3pts min.). @ -As above X-rays interpreted by me (1pt min.). @ -None done CT interpreted by me (1pt min.). @ -CT angio chest/abdomen reveals post open sternotomy changes redemonstrated. Stable 5.0 cm ascending aortic aneurysm. Linear density just proximal could reflect focal dissection versus product of prior surgery. Findings present on prior CT. Gallstones redemonstrated with new findings of gallbladder that could represent acute cholecystitis U/S interpreted by me (1pt. min.). @ -Gallbladder ultrasound reveals pericholecystic fluid with edematous sifuentes and layering gallbladder/sludge What testing was considered but not performed or refused? (CT, X-rays, U/S, labs)? Why? @ -None What meds were considered but not given or refused? Why? @ -None Did you discuss the management of the patient with other professionals (professionals i.e. CARLA Gallegos, CYBER ANALYST, lab, RT, psych nurse, social studies teacher, office services specialist, teacher, founder and chief technical officer, ed case manager)? Give summary @ -I spoke with Dr. Reno cardiothoracic surgery who reviewed images and does not see any sign of acute dissection. Dr. Julian on-call general surgery request to be on consult with admission to medicine, Dr. Taina CERRATO agreeable to this plan Was smoking cessation discussed for >3mins.? @ -No Was critical care preformed (if so, how long)? @ -No Were there social determinants of health that impacted care today? How? (Homele ssness, low income, unemployed, alcoholism, drug addiction, transportation, low edu. Level, literacy, decrease access to med. care, alf, rehab)? @ -No Was there de-escalation of care discussed even if they declined (Discuss DNR or withdrawal of care, Hospice)? DNR status @ -No What co-morbidities impacted this encounter? (DM, HTN, Smoking, COPD, CAD, Cancer, CVA, ARF, Chemo, Hep., AIDS, mental health diagnosis, sleep apnea, morbid obesity)? @ -None Was patient admitted / discharged? Hospital course, mention meds given and route, prescriptions, significant lab abnormalities, going to OR and other pertinent info. @ -Admitted. This is a 73-year-old female with history of gallstones, hypertens ion, and atrial fibrillation presenting for mid back pain x 5 hours. Vital signs are stable. Patient was provided with IV fluids and analgesics. Due to history of ascending aortic aneurysm, CT angio chest/abdomen performed which revealed stable 5.0 cm ascending aortic aneurysm with linear density just proximal, findings present on prior CT. Findings were discussed with Dr. Reno who reviewed images and does not see any sign of acute dissection. Findings are likely due to postsurgical changes. Lab work remarkable for elevated LFTs, AST 121, ALT 48. White blood cell count stable at 10. Ultrasound gallbladder reveals pericholecystic fluid with edematous sifuentes and layering gallbladder/s ludge consistent with cholecystitis. Results discussed with patient. Patient was admitted to medicine with surgery consult. Started on IV antibiotics. Case was discussed with my ED attending Dr. Rodriguez. Undiagnosed new problem with uncertain prognosis? @ -No Drug Therapy requiring intensive monitoring for toxicity (Heparin, Nitro, Insulin, Cardizem)? @ -No Were any procedures done? @ -No Diagnosis/symptom? @ -Acute cholecystitis Acute, or Chronic, or Acute on Chronic? @ -Acute Uncomplicated (without systemic symptoms) or Complicated (systemic symptoms)? @ -Uncomplicated Side effects of treatment? @ -No Exacerbation, Progression, or Severe Exacerbation? @ -No Poses a threat to life or bodily function? How? (Chest pain, USA, ID, pneumonia, PE, COPD, DKA, ARF, appy, cholecystitis, CVA, Diverticulitis, Homicidal, Suicidal, threat to staff... and all critical care pts) @ -Yes - Lab Data Result diagrams: 06/12/24 10:56 06/12/24 10:56 Lab Results 06/12/24 06/12/24 06/12/24 Range/Units 10:56 10:56 10:56 WBC 10.6 (3.8-10.6) k/uL RBC 4.56 (3.80-5.40) m/uL Hgb 13.8 (11.4-16.0) gm/dL Hct 42.4 (34.0-46.0) % MCV 93.0 (80.0-100.0) fL MCH 30.2 (25.0-35.0) pg MCHC 32.5 (31.0-37.0) g/dL RDW 12.7 (11.5-15.5) % Plt Count 235 (150-450) k/uL MPV 7.7 Neutrophils % 76 % Lymphocytes % 13 % Monocytes % 8 % Eosinophils % 2 % Basophils % 1 % Neutrophils # 8.0 H (1.3-7.7) k/uL Lymphocytes # 1.4 (1.0-4.8) k/uL Monocytes # 0.8 (0-1.0) k/uL Eosinophils # 0.2 (0-0.7) k/uL Basophils # 0.1 (0-0.2) k/uL PT 10.5 (10.0-12.5) sec INR 0.9 (<1.2) APTT 21.6 L (22.0-30.0) sec Sodium 138 (137-145) mmol/L Potassium 3.9 (3.5-5.1) mmol/L Chloride 104 (98-107) mmol/L Carbon Dioxide 26 (22-30) mmol/L Anion Gap 8 mmol/L BUN 19 H (7-17) mg/dL Creatinine 0.59 (0.52-1.04) mg/dL Est GFR (CKD-EPI)AfAm >90 (>60 ml/min/1.73 sqM) Est GFR (CKD-EPI)NonAf >90 (>60 ml/min/1.73 sqM) Glucose 87 (74-99) mg/dL Plasma Lactic Acid Ross (0.7-2.0) mmol/L Calcium 9.9 (8.4-10.2) mg/dL Total Bilirubin 0.7 (0.2-1.3) mg/dL AST 121 H (14-36) U/L ALT 48 H (4-34) U/L Alkaline Phosphatase 65 (38-126) U/L Troponin I (0.000-0.034) ng/mL Total Protein 6.6 (6.3-8.2) g/dL Albumin 4.3 (3.5-5.0) g/dL Lipase 267 (23-300) U/L 06/12/24 06/12/24 Range/Units 10:56 10:56 WBC (3.8-10.6) k/uL RBC (3.80-5.40) m/uL Hgb (11.4-16.0) gm/dL Hct (34.0-46.0) % MCV (80.0-100.0) fL MCH (25.0-35.0) pg MCHC (31.0-37.0) g/dL RDW (11.5-15.5) % Plt Count (150-450) k/uL MPV Neutrophils % % Lymphocytes % % Monocytes % % Eosinophils % % Basophils % % Neutrophils # (1.3-7.7) k/uL Lymphocytes # (1.0-4.8) k/uL Monocytes # (0-1.0) k/uL Eosinophils # (0-0.7) k/uL Basophils # (0-0.2) k/uL PT (10.0-12.5) sec INR (<1.2) APTT (22.0-30.0) sec Sodium (137-145) mmol/L Potassium (3.5-5.1) mmol/L Chloride (98-107) mmol/L Carbon Dioxide (22-30) mmol/L Anion Gap mmol/L BUN (7-17) mg/dL Creatinine (0.52-1.04) mg/dL Est GFR (CKD-EPI)AfAm (>60 ml/min/1.73 sqM) Est GFR (CKD-EPI)NonAf (>60 ml/min/1.73 sqM) Glucose (74-99) mg/dL Plasma Lactic Acid Ross 2.0 (0.7-2.0) mmol/L Calcium (8.4-10.2) mg/dL Total Bilirubin (0.2-1.3) mg/dL AST (14-36) U/L ALT (4-34) U/L Alkaline Phosphatase (38-126) U/L Troponin I <0.012 (0.000-0.034) ng/mL Total Protein (6.3-8.2) g/dL Albumin (3.5-5.0) g/dL Lipase (23-300) U/L Disposition Clinical Impression: Acute cholecystitis Disposition: ADMITTED IP TO THIS HOSP Referrals: Deandre Garcia MD [Primary Care Provider] - 1-2 days Time of Disposition: 15:13
[2024-06-12] MEDS: SODIUM CHLORIDE 0.9% 1,000 ML IV STA (11:00)
[2024-06-12] MEDS: ONDANSETRON 4 MG/2 ML VIAL IVP STA (11:00)
[2024-06-12] MEDS: MORPHINE SULFATE 4 MG/ML SYRINGE IVP STA (11:02)
[2024-06-12 11:17] LABS: Basophils # (A) 0.1 k/uL (0-0.2); Basophils % (A) 1 %; Eosinophils # (A) 0.2 k/uL (0-0.7); Eosinophils % (A) 2 %; HCT 42.4 % (34.0-46.0); HGB 13.8 gm/dL (11.4-16.0); Lymphocytes # (A) 1.4 k/uL (1.0-4.8); Lymphocytes % (A) 13 %; MCH 30.2 pg (25.0-35.0); MCHC 32.5 g/dL (31.0-37.0); Mean Platelet Volume 7.7; Monocytes # (A) 0.8 k/uL (0-1.0); Monocytes % (A) 8 %; Neutrophils % (A) 76 %; Platelet Count 235 k/uL (150-450); RBC 4.56 m/uL (3.80-5.40); RDW 12.7 % (11.5-15.5); WBC 10.6 k/uL (3.8-10.6)
[2024-06-12 11:32] LABS: ALT 48 U/L (4-34); AST 121 U/L (14-36); African American GFR (CKD) >90 (>60 ml/min/1.73 sqM); Albumin 4.3 g/dL (3.5-5.0); Alkaline Phosphatase 65 U/L (38-126); Anion Gap 8 mmol/L; Blood Urea Nitrogen 19 mg/dL (7-17); Calcium 9.9 mg/dL (8.4-10.2); Carbon Dioxide 26 mmol/L (22-30); Chloride 104 mmol/L (98-107); Glucose 87 mg/dL (74-99); Lipase 267 U/L (23-300); Non-African American GFR(CKD) >90 (>60 ml/min/1.73 sqM); Potassium 3.9 mmol/L (3.5-5.1); Sodium 138 mmol/L (137-145); Total Bilirubin 0.7 mg/dL (0.2-1.3); Total Protein 6.6 g/dL (6.3-8.2)
[2024-06-12 11:41] LABS: INR 0.9 (<1.2); Prothrombin Time 10.5 sec (10.0-12.5)
[2024-06-12 11:45] LABS: Partial Thromboplastin Time 21.6 sec (22.0-30.0)
--- NOTE | 2024-06-12 12:01 | CT ---
EXAMINATION TYPE: CT angio thor/abd DATE OF EXAM: 06/12/2024 HISTORY: back pain, hx of abdominal aortic aneurysm CT DLP: 1157.8mGycm Automated Exposure Control for Dose Reduction was Utilized. CONTRAST: CTA scan of the thorax abdomen and pelvis are performed without oral and without and with IV Contras t, patient injected with 100 mL of Isovue 370. Three-D reconstructed images are created on an [employer] workstation and reviewed. COMPARISON: Prior CT abdomen and pelvis July 19, 2023. CT chest on July 10 FINDINGS: Vascular: Persistent ascending aortic aneurysm measuring up to 5.0 cm AP diameter axial image 62. Nor mal origin of the great vessels is seen. No suspicious hyperdense material on the noncontrast images to suggest intramural hematoma. There is persistent focal linear density could reflect dissection in the ascending aorta axial image 75 seen best on sagittal image 93, this was present on prior study in retrospect proximal to the aneurysm. No aneurysmal extension into the descending aorta is seen. Sign ificant narrowing of the celiac artery at its origin is redemonstrated sagittal image 107 poststenoti c dilatation. Patent SMA and HUSEYIN along with bilateral renal arteries. Patent iliac arteries into femo ral arteries bilaterally. No AAA. No linear hypodensity to suggest dissection. No significant stenosi s. Lungs: Mild bibasilar linear scarring and/or atelectasis is present. No pleural effusion or pneumotho rax seen bilaterally. Mediastinum: Left atrial appendage clip is redemonstrated. Overlying sternal wires and mediastinal cl ips are redemonstrated. LIVER/GB: Internal gallstones redemonstrated. Gallbladder has distended margin is a suggestion of abn ormal wall thickening. PANCREAS: No significant abnormality is seen. SPLEEN: No significant abnormality is seen. ADRENALS: No significant abnormality is seen. KIDNEYS: No significant abnormality is seen. BOWEL: Sigmoid colonic diverticulosis. No CT evidence for acute diverticulitis. No abnormal small or large bowel dilatation. UTERUS/ADNEXA: No gross abnormality seen. LYMPH NODES: No greater than 1cm abdominal or pelvic lymph nodes are appreciated. OSSEOUS STRUCTURES: Focal moderate to severe disc space narrowing with endplate sclerosis at the L1-L 2 level. S-shaped scoliosis is redemonstrated. OTHER: Moderate-sized fat-containing umbilical hernia. IMPRESSION: 1. Postopen sternotomy changes are redemonstrated. There is stable 5.0 cm ascending aortic aneurysm. There is linear density just proximal to this which could reflect focal dissection versus product of prior surgery. Correlate clinically. Findings were present on prior CT. 2. Gallstones redemonstrated with new findings in the gallbladder that could reflect product of acute cholecystitis in appropriate clinical setting, correlate clinically. [facility], , 06/12/2024 11:59 AM
--- NOTE | 2024-06-12 13:57 | US ---
EXAMINATION TYPE: US gallbladder DATE OF EXAM: 06/12/2024 COMPARISON: CT(Today) CLINICAL INDICATION: Female, 73 years old with history of epigastric pain; TECHNIQUE: Grayscale and color Doppler imaging of the right upper quadrant. FINDINGS: EXAM MEASUREMENTS: Liver Length: 16.8 Gallbladder Wall: 0.7m CBD: 0.8m, color Doppler imaging was utilized to isolate the common bile duct for measurement. 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 Pericholecystic fluid with edematous sifuentes and layering gallbladder/sludge. Correlate for cholecy stitis. 2. Nonobstructing renal calculi suggested in the right renal sinus. [facility], , 06/12/2024 1:55 PM
[2024-06-12] MEDS ORDERED: ACETAMINOPHEN TAB 325 MG TAB PO PRN (15:05)
[2024-06-12] MEDS ORDERED: NALOXONE 0.4 MG/ML 1 ML VIAL IV PRN (15:05)
[2024-06-12] MEDS ORDERED: HYDROmorphone 0.5 MG/0.5 ML SYRINGE IVP PRN (15:05)
[2024-06-12] MEDS ORDERED: ONDANSETRON 4 MG/2 ML VIAL IVP PRN (15:05)
[2024-06-12] MEDS ORDERED: MORPHINE SULFATE 4 MG/ML SYRINGE IV PRN (15:05)
[2024-06-12] MEDS: SODIUM CHLORIDE 0.9% 1,000 ML IV SCH (16:09)
[2024-06-12] MEDS: PIPERACILLIN-TAZOBACTAM 3.375 GM in SODIUM CHLORIDE 0.9% 100 ML IVPB STA (16:11)
[2024-06-12] MEDS ORDERED: ATORVASTATIN 10 MG TAB PO SCH (22:00)
[2024-06-12] MEDS: APIXABAN 5 MG TAB PO SCH (22:20)
[2024-06-12] MEDS: ATORVASTATIN 10 MG TAB PO SCH (22:20)
[2024-06-12] MEDS: DILTIAZEM ORAL 60 MG TAB PO SCH (22:20)
[2024-06-13 07:41] VITALS: RESP 16
[2024-06-13 07:43] LABS: ALT 51 U/L (4-34); AST 38 U/L (14-36); African American GFR (CKD) >90 (>60 ml/min/1.73 sqM); Albumin 3.5 g/dL (3.5-5.0); Albumin/Globulin Ratio 1.5; Alkaline Phosphatase 66 U/L (38-126); Anion Gap 6 mmol/L; Blood Urea Nitrogen 10 mg/dL (7-17); Calcium 8.9 mg/dL (8.4-10.2); Carbon Dioxide 27 mmol/L (22-30); Chloride 105 mmol/L (98-107); Globulin 2.4 g/dL; Glucose 83 mg/dL (74-99); Non-African American GFR(CKD) >90 (>60 ml/min/1.73 sqM); Potassium 4.4 mmol/L (3.5-5.1); Sodium 138 mmol/L (137-145); Total Bilirubin 0.5 mg/dL (0.2-1.3); Total Protein 5.9 g/dL (6.3-8.2)
--- NOTE | 2024-06-13 10:29 | P.GSCN ---
History of Present Illness Consult date: 06/13/24 Reason for Consult: Cholecystitis History of present illness: 73-year-old female hospitalized because of right-sided back and abdominal pain. Says it woke her up from sleep about 2 nights ago. Started in the right back and then radiated around to the front. Some nausea. Similar episode back in 2020 after her open heart surgery. He is on Eliquis. No pain since last night. Feels mildly constipated. Patient states she is just getting over bronchitis. Her transaminases were elevated last night. They are improved today. White blood cell count normal. Patient had a CT and also ultrasound showing gallbladder distention with wall thickening and gallstones. Review of Systems The patient denies any acute changes in vision or hearing, no dysphagia or odynophagia, no chest pain or shortness of breath, no dysuria or hematuria, no headache, no runny nose, no rectal bleeding or melena, no unexplained weight loss Past Medical History Past Medical History: Atrial Fibrillation, Hypertension, Rheumatoid Arthritis (RA) Additional Past Medical History / Comment(s): AFIB 2007,thoracoabdominal aortic aneurysm, gallstones History of Any Multi-Drug Resistant Organisms: None Reported Past Surgical History: Section Additional Past Surgical History / Comment(s): L leg vein stripping, foot surgery, left thumb surgery , aortic aneursym repair Past Anesthesia/Blood Transfusion Reactions: No Reported Reaction Past Psychological History: No Psychological Hx Reported, Depression Smoking Status: Never smoker Past Alcohol Use History: Occasional Past Drug Use History: None Reported - Past Family History Mother Family Medical History: Cancer Father Additional Family Medical History / Comment(s): gastrointestinal issues resulting in Medications and Allergies Home Medications Medication Instructions Recorded Confirmed Type Acetaminophen Tab [Tylenol] 500 mg PO Q6H PRN 02/09/21 06/12/24 History Rosuvastatin Calcium [Crestor] 5 mg PO HS@2200 02/09/21 06/12/24 History Orencia Infusion 1 dose IV Q14D 06/01/22 06/12/24 History Apixaban [Eliquis] 5 mg PO BID@1000,2200 06/12/24 06/12/24 History Diltiazem Oral [Cardizem Oral] 60 mg PO BID@1000,2200 06/12/24 06/12/24 History Allergies Allergy/AdvReac Type Severity Reaction Status Date / Time sulfamethoxazole Allergy Anaphylaxis Verified 06/12/24 11:31 [From Bactrim] trimethoprim [From Bactrim] Allergy Swelling Verified 06/12/24 11:31 levofloxacin [From Levaquin] AdvReac swollen Verified 06/12/24 11:31 throat, difficulty swallowing, Nerve twitching Surgical - Exam Vital Signs Temp Pulse Resp BP Pulse Ox 98.5 F 83 20 131/86 96 06/12/24 10:04 06/12/24 10:04 06/12/24 10:04 06/12/24 10:04 06/12/24 10:04 Physical exam: General: Well-developed, well-nourished HEENT: Normocephalic, sclerae nonicteric Abdomen: Nontender, nondistended Extremities: No edema Neuro: Alert and oriented Results - Labs 06/12/24 10:56 06/13/24 06:38 Abnormal Lab Results - Last 24 Hours (Table) 06/12/24 06/12/24 06/12/24 Range/Units 10:56 10:56 10:56 Neutrophils # 8.0 H (1.3-7.7) k/uL APTT 21.6 L (22.0-30.0) sec BUN 19 H (7-17) mg/dL AST 121 H (14-36) U/L ALT 48 H (4-34) U/L Total Protein (6.3-8.2) g/dL 06/13/24 Range/Units 06:38 Neutrophils # (1.3-7.7) k/uL APTT (22.0-30.0) sec BUN (7-17) mg/dL AST 38 H (14-36) U/L ALT 51 H (4-34) U/L Total Protein 5.9 L (6.3-8.2) g/dL Diabetes panel 06/12/24 06/13/24 Range/Units 10:56 06:38 Sodium 138 138 (137-145) mmol/L Potassium 3.9 4.4 (3.5-5.1) mmol/L Chloride 104 105 (98-107) mmol/L Carbon Dioxide 26 27 (22-30) mmol/L BUN 19 H 10 (7-17) mg/dL Creatinine 0.59 0.62 (0.52-1.04) mg/dL Glucose 87 83 (74-99) mg/dL Calcium 9.9 8.9 (8.4-10.2) mg/dL AST 121 H 38 H (14-36) U/L ALT 48 H 51 H (4-34) U/L Alkaline Phosphatase 65 66 (38-126) U/L Total Protein 6.6 5.9 L (6.3-8.2) g/dL Albumin 4.3 3.5 (3.5-5.0) g/dL Calcium panel 06/12/24 06/13/24 Range/Units 10:56 06:38 Calcium 9.9 8.9 (8.4-10.2) mg/dL Albumin 4.3 3.5 (3.5-5.0) g/dL Pituitary panel 06/12/24 06/13/24 Range/Units 10:56 06:38 Sodium 138 138 (137-145) mmol/L Potassium 3.9 4.4 (3.5-5.1) mmol/L Chloride 104 105 (98-107) mmol/L Carbon Dioxide 26 27 (22-30) mmol/L BUN 19 H 10 (7-17) mg/dL Creatinine 0.59 0.62 (0.52-1.04) mg/dL Glucose 87 83 (74-99) mg/dL Calcium 9.9 8.9 (8.4-10.2) mg/dL Adrenal panel 06/12/24 06/13/24 Range/Units 10:56 06:38 Sodium 138 138 (137-145) mmol/L Potassium 3.9 4.4 (3.5-5.1) mmol/L Chloride 104 105 (98-107) mmol/L Carbon Dioxide 26 27 (22-30) mmol/L BUN 19 H 10 (7-17) mg/dL Creatinine 0.59 0.62 (0.52-1.04) mg/dL Glucose 87 83 (74-99) mg/dL Calcium 9.9 8.9 (8.4-10.2) mg/dL Total Bilirubin 0.7 0.5 (0.2-1.3) mg/dL AST 121 H 38 H (14-36) U/L ALT 48 H 51 H (4-34) U/L Alkaline Phosphatase 65 66 (38-126) U/L Total Protein 6.6 5.9 L (6.3-8.2) g/dL Albumin 4.3 3.5 (3.5-5.0) g/dL Assessment and Plan (1) Acute cholecystitis Narrative/Plan: 73-year-old female with acute calculus cholecystitis. Patient doing much better today. She is nontender on exam. Would be reasonable to consider outpatient cholecystectomy since patient is doing better. She would like to recover more from her bronchitis. Begin low-fat diet. May discharge if tolerates. Follow- up in the office 1 to 2 weeks. Will provide short course 5 days of oral antibiotics for cholecystitis if discharged. Current Visit: Yes Status: Acute Code(s): K81.0 - ACUTE CHOLECYSTITIS SNOMED Code(s): 06175098
[2024-06-13] MEDS: LACTULOSE 20 GM/30 ML CUP PO SCH (11:54)
--- NOTE | 2024-06-13 15:10 | P.HPIM ---
History of Present Illness Patient pleasant 78-year-old female came in with right upper quadrant abdominal pain. Patient pain radiates to the front. Patient had an ultrasound which showed biliary sludge and possibility of cholecystitis although when I examined the patient patient pain completely resolved no tenderness no Gracia sign at that time. Patient was evaluated general surgery recommending antibiotics for 5 days and follow-up as an outpatient. Patient tolerated diet very well. Patient white count is within normal limits CT showed some thickening. Patient has mildly elevated AST and ALT of 121 and 41 which came down significantly today. Alkaline phosphatase is within normal limits though REVIEW OF SYSTEMS: All other systems are negative except those mentioned in the HPI PHYSICAL EXAMINATION: GENERAL: The patient is alert and oriented x3, not in any acute distress. Well developed, well nourished. HEENT: Pupils are round and equally reacting to light. EOMI. No scleral icterus. No conjunctival pallor. Normocephalic, atraumatic. No pharyngeal erythema. No thyromegaly. CARDIOVASCULAR: S1 and S2 present. No murmurs, rubs, or gallops. PULMONARY: Chest is clear to auscultation, no wheezing or crackles. ABDOMEN: Soft, nontender, nondistended, normoactive bowel sounds. No palpable organomegaly. MUSCULOSKELETAL: No joint swelling or deformity. EXTREMITIES: No cyanosis, clubbing, or pedal edema. NEUROLOGICAL: Gross neurological examination did not reveal any focal deficits. SKIN: No rashes. Assessment and plan -Biliary sludge with the possibility of cholecystitis evaluated by neurosurgery recommending follow-up as an outpatient no emergency surgery is being recommended at this time -Mild elevated liver enzymes secondary to probably biliary sludge -Paroxysmal atrial fibrillation presently sinus rhythm on anticoagulation which will be continued -Hypertension -Rheumatoid arthritis -Depression Patient will be discharged today with above-mentioned plan Past Medical History Past Medical History: Atrial Fibrillation, Hypertension, Rheumatoid Arthritis (RA) Additional Past Medical History / Comment(s): AFIB 2008,thoracoabdominal aortic aneurysm, gallstones History of Any Multi-Drug Resistant Organisms: None Reported Past Surgical History: Section Additional Past Surgical History / Comment(s): L leg vein stripping, foot surgery, left thumb surgery , aortic aneursym repair Past Anesthesia/Blood Transfusion Reactions: No Reported Reaction Past Psychological History: No Psychological Hx Reported, Depression Smoking Status: Never smoker Past Alcohol Use History: Occasional Past Drug Use History: None Reported - Past Family History Mother Family Medical History: Cancer Father Additional Family Medical History / Comment(s): gastrointestinal issues resulting in Medications and Allergies Home Medications Medication Instructions Recorded Confirmed Type Acetaminophen Tab [Tylenol] 500 mg PO Q6H PRN 02/09/21 06/12/24 History Rosuvastatin Calcium [Crestor] 5 mg PO HS@2200 02/09/21 06/12/24 History Orencia Infusion 1 dose IV Q14D 06/01/22 06/12/24 History Apixaban [Eliquis] 5 mg PO BID@1000,2200 06/12/24 06/12/24 History Diltiazem Oral [Cardizem Oral] 60 mg PO BID@1000,2200 06/12/24 06/12/24 History Amoxic-Pot Clav 875-125Mg 1 tab PO BID 5 Days #10 tab 06/13/24 Rx [Augmentin 875-125] Allergies Allergy/AdvReac Type Severity Reaction Status Date / Time sulfamethoxazole Allergy Anaphylaxis Verified 06/12/24 11:31 [From Bactrim] trimethoprim [From Bactrim] Allergy Swelling Verified 06/12/24 11:31 levofloxacin [From Levaquin] AdvReac swollen Verified 06/12/24 11:31 throat, difficulty swallowing, Nerve twitching Physical Exam Vitals: Vital Signs Temp Pulse Pulse Pulse Resp BP BP 06/13/24 06:50 98.1 F 61 16 122/74 06/13/24 02:04 71 17 06/13/24 01:25 98.4 F 67 16 116/71 06/12/24 22:20 71 17 06/12/24 18:18 97.6 F 71 17 133/68 06/12/24 17:35 98.2 F 67 17 157/82 06/12/24 16:04 73 17 152/82 Pulse Ox 06/13/24 06:50 94 L 06/13/24 02:04 06/13/24 01:25 95 06/12/24 22:20 06/12/24 18:18 97 06/12/24 17:35 98 06/12/24 16:04 95 Intake and Output 06/13/24 06/13/24 06/13/24 06:59 14:59 22:59 Other: Voiding Method Toilet # Voids 2 Results CBC & Chem 7: 06/12/24 10:56 06/13/24 06:38 Labs: Abnormal Lab Results - Last 24 Hours (Table) 06/13/24 Range/Units 06:38 AST 38 H (14-36) U/L ALT 51 H (4-34) U/L Total Protein 5.9 L (6.3-8.2) g/dL Thrombosis Risk Factor Assmnt - Choose All That Apply Any of the Below Risk Factors Present?: Yes Each Factor Represents 1 point: Obesity (BMI >25) Other Risk Factors: Yes Each Risk Factor Represents 2 Points: Age 61-74 years Other congenital or acquired thrombophilia - If yes, enter type in comment: No Thrombosis Risk Factor Assessment Total Risk Factor Score: 3 Thrombosis Risk Factor Assessment Level: Moderate Risk
--- NOTE | 2024-06-13 15:10 | P.DS ---
Providers Date of admission: 06/12/24 15:20 Attending physician: Ubaldo Her MD Consults: 06/12/24 15:05 Consult Physician Urgent Consulting Provider: Esequiel Julian Consult Reason/Comments: Acute cholecystitis Do you want consulting provider notified?: Yes Primary care physician: [facility] Course: Patient pleasant 78-year-old female came in with right upper quadrant abdominal pain. Patient pain radiates to the front. Patient had an ultrasound which showed biliary sludge and possibility of cholecystitis although when I examined the patient patient pain completely resolved no tenderness no Gracia sign at that time. Patient was evaluated general surgery recommending antibiotics for 5 days and follow-up as an outpatient. Patient tolerated diet very well. Patient white count is within normal limits CT showed some thickening. Patient has mildly elevated AST and ALT of 121 and 41 which came down significantly today. Alkaline phosphatase is within normal limits though REVIEW OF SYSTEMS: All other systems are negative except those mentioned in the HPI PHYSICAL EXAMINATION: GENERAL: The patient is alert and oriented x3, not in any acute distress. Well developed, well nourished. HEENT: Pupils are round and equally reacting to light. EOMI. No scleral icterus. No conjunctival pallor. Normocephalic, atraumatic. No pharyngeal erythema. No thyromegaly. CARDIOVASCULAR: S1 and S2 present. No murmurs, rubs, or gallops. PULMONARY: Chest is clear to auscultation, no wheezing or crackles. ABDOMEN: Soft, nontender, nondistended, normoactive bowel sounds. No palpable organomegaly. MUSCULOSKELETAL: No joint swelling or deformity. EXTREMITIES: No cyanosis, clubbing, or pedal edema. NEUROLOGICAL: Gross neurological examination did not reveal any focal deficits. SKIN: No rashes. Assessment and plan -Biliary sludge with the possibility of cholecystitis evaluated by neurosurgery recommending follow-up as an outpatient no emergency surgery is being recommen ded at this time -Mild elevated liver enzymes secondary to probably biliary sludge -Paroxysmal atrial fibrillation presently sinus rhythm on anticoagulation which will be continued -Hypertension -Rheumatoid arthritis -Depression Patient will be discharged today with above-mentioned plan Plan - Discharge Summary Discharge Rx Participant: No New Discharge Prescriptions: New Amoxic-Pot Clav 875-125Mg [Augmentin 875-125] 1 tab PO BID 5 Days #10 tab No Action Acetaminophen Tab [Tylenol] 500 mg PO Q6H PRN PRN Reason: Pain Rosuvastatin Calcium [Crestor] 5 mg PO HS@2200 Apixaban [Eliquis] 5 mg PO BID@1000,2200 Orencia Infusion 1 dose IV Q14D Diltiazem Oral [Cardizem Oral] 60 mg PO BID@1000,2200 Discharge Medication List Acetaminophen Tab [Tylenol] 500 mg PO Q6H PRN 02/09/21 [History] Rosuvastatin Calcium [Crestor] 5 mg PO HS@2200 02/09/21 [History] Orencia Infusion 1 dose IV Q14D 06/01/22 [History] Apixaban [Eliquis] 5 mg PO BID@1000,2200 06/12/24 [History] Diltiazem Oral [Cardizem Oral] 60 mg PO BID@1000,0 06/12/24 [History] Amoxic-Pot Clav 875-125Mg [Augmentin 875-125] 1 tab PO BID 5 Days #10 tab 06/13/24 [Rx] Follow up Appointment(s)/Referral(s): Esequiel Julian MD [Medical Doctor] - 1 Week Deandre Garcia MD [Primary Care Provider] - 3 Days
[2024-06-13 15:28] VITALS: BP 136/77; PULSE 74; TEMP 98
== END 2024-06-13 17:34 | disposition home or self-care (01) ==
LOC: EC 09:59 → 6NMEDSUR 15:20
PROVIDERS: ADMIT Internal Medicine; ATTEND Internal Medicine
DX: K82.8 Other specified diseases of gallbladder (principal); I71.21 Aneurysm of the ascending aorta, without rupture; K80.20 Calculus of gallbladder without cholecystitis without obstruction; K59.00 Constipation, unspecified; I10 Essential (primary) hypertension; I48.0 Paroxysmal atrial fibrillation; R74.01 Elevation of levels of liver transaminase levels; J40 Bronchitis, not specified as acute or chronic; M06.9 Rheumatoid arthritis, unspecified; F32.A Depression, unspecified; E66.9 Obesity, unspecified; Z68.25 Body mass index [BMI] 25.0-25.9, adult; Z79.01 Long term (current) use of anticoagulants; Z79.899 Other long term (current) drug therapy; Z88.1 Allergy status to other antibiotic agents; Z88.2 Allergy status to sulfonamides
CPT/HCPCS: 96361; 96365; 96375; 99285; 36415; 93005; 80053 ×2; 83605; 83690; 84484; 85025; 85610; 85730; 76705; 71275; 74175; G0378 ×2; J2543; J2270; J2405; Q9967

== ENCOUNTER 2024-06-18 05:01 | Emergency (ER) | payer MEDICARE, BC ==
[2024-06-18 05:08] VITALS: RESP 18
--- NOTE | 2024-06-18 05:59 | ED ---
URI HPI - General Chief Complaint: Upper Respiratory Infection Stated Complaint: cough Time Seen by Provider: 06/18/24 05:04 Source: patient, RN notes reviewed, old records reviewed Mode of arrival: ambulatory Limitations: no limitations - History of Present Illness Initial Comments: This is a 73-year-old female to the ER. This patient presents today for evaluation regards to cough congestion unable to sleep secondary to symptoms 3 days of productive cough with worsening symptoms MD Complaint: cough, sore throat, nasal congestion -: days(s) (3) Consistency: constant Improves With: nothing Worsens With: nothing Associated Symptoms: nasal congestion, sore throat, cough Treatments Prior to Arrival: none - Related Data Home Medications Medication Instructions Recorded Confirmed Acetaminophen Tab [Tylenol] 500 mg PO Q6H PRN 02/09/21 06/12/24 Rosuvastatin Calcium [Crestor] 5 mg PO HS@2200 02/09/21 06/12/24 Orencia Infusion 1 dose IV Q14D 06/01/22 06/12/24 Apixaban [Eliquis] 5 mg PO BID@1000,2200 06/12/24 06/12/24 Diltiazem Oral [Cardizem Oral] 60 mg PO BID@1000,2200 06/12/24 06/12/24 Previous Rx's Medication Instructions Recorded Amoxic-Pot Clav 875-125Mg 1 tab PO BID 5 Days #10 tab 06/13/24 [Augmentin 875-125] Albuterol Inhaler [Ventolin Hfa 1 - 2 puff INHALATION Q6H PRN #1 06/18/24 Inhaler] each Benzonatate [Tessalon Perles] 100 mg PO TID PRN #30 capsule 06/18/24 Allergies Allergy/AdvReac Type Severity Reaction Status Date / Time sulfamethoxazole Allergy Anaphylaxis Verified 06/18/24 05:03 [From Bactrim] trimethoprim [From Bactrim] Allergy Swelling Verified 06/18/24 05:03 levofloxacin [From Levaquin] AdvReac swollen Verified 06/18/24 05:03 throat, difficulty swallowing, Nerve twitching Review of Systems ROS Statement: Those systems with pertinent positive or pertinent negative responses have been documented in the HPI. ROS Other: All systems not noted in ROS Statement are negative. Past Medical History Past Medical History: Atrial Fibrillation, Hypertension, Rheumatoid Arthritis (RA) Additional Past Medical History / Comment(s): AFIB 2008,thoracoabdominal aortic aneurysm, gallstones History of Any Multi-Drug Resistant Organisms: None Reported Past Surgical History: Section Additional Past Surgical History / Comment(s): L leg vein stripping, foot surgery, left thumb surgery , aortic aneursym repair Past Anesthesia/Blood Transfusion Reactions: No Reported Reaction Past Psychological History: Depression Smoking Status: Never smoker Past Alcohol Use History: Occasional Past Drug Use History: None Reported - Past Family History Mother Family Medical History: Cancer Father Additional Family Medical History / Comment(s): gastrointestinal issues resulting in General Exam Limitations: no limitations General appearance: alert, in no apparent distress Head exam: Present: atraumatic, normocephalic, normal inspection Eye exam: Present: normal appearance, PERRL, EOMI. Absent: scleral icterus, conjunctival injection, periorbital swelling ENT exam: Present: normal exam, mucous membranes moist Neck exam: Present: normal inspection. Absent: tenderness, meningismus, lymphadenopathy Respiratory exam: Present: normal lung sounds bilaterally. Absent: respiratory distress, wheezes, rales, rhonchi, stridor Cardiovascular Exam: Present: regular rate, normal rhythm, normal heart sounds. Absent: systolic murmur, diastolic murmur, rubs, gallop, clicks GI/Abdominal exam: Present: soft, normal bowel sounds. Absent: distended, tenderness, guarding, rebound, rigid Extremities exam: Present: normal inspection, full ROM, normal capillary refill. Absent: tenderness, pedal edema, joint swelling, calf tenderness Back exam: Present: normal inspection Neurological exam: Present: alert, oriented X3, CN II-XII intact Psychiatric exam: Present: normal affect, normal mood Skin exam: Present: warm, dry, intact, normal color. Absent: rash Course Vital Signs 06/18/24 05:03 Temperature 98.5 F Pulse Rate 82 Respiratory 18 Rate Blood Pressure 131/81 O2 Sat by Pulse 93 L Oximetry - Reevaluation(s) Reevaluation #1: 06/18/24 06:25 Medical records reviewed Reevaluation #2: 06/18/24 06:25 Patient symptoms improved Reevaluation #3: 06/18/24 06:26 Patient informed of results and questions answered Reevaluation #4: Was pt. sent in by a medical professional or institution ([facility], [facility], urgent care, hospital, or senior living...) When possible be specific @ -no Did you speak to anyone other than the patient for history (EMS, parent, family, police, friend...)? What history was obtained from this source @ -no Did you review nursing and triage notes (agree or disagree)? Why? @ -agree Are old charts reviewed (outside hosp., previous admission, EMS record, old EKG, old radiological studies, urgent care reports/EKG's, senior living records)? Report findings @ -yes Differential Diagnosis (chest pain, altered mental status, abdominal pain women, abdominal pain men, vaginal bleeding, weakness, fever, dyspnea, syncope, headache, dizziness, GI bleed, back pain, seizure, CVA, palpatations, mental health, musculoskeletal)? @ -prior EKG interpreted by me (3pts min.). @ -yes X-rays interpreted by me (1pt min.). @ -yes negative for acute disease CT interpreted by me (1pt min.). @ -no U/S interpreted by me (1pt. min.). @ -no What testing was considered but not performed or refused? (CT, X-rays, U/S, labs)? Why? @ -none What meds were considered but not given or refused? Why? @ -none Did you discuss the management of the patient with other professionals (professionals i.e. [facility], [employer], lab, RT, psych nurse, social service manager, account administrator, teacher, airport operations officer, sample case porter)? Give summary @ -no Was smoking cessation discussed for >3mins.? @ -no Was critical care preformed (if so, how long)? @ -no Were there social determinants of health that impacted care today? How? (Homeles sness, low income, unemployed, alcoholism, drug addiction, transportation, low edu. Level, literacy, decrease access to med. care, longterm, rehab)? @ -none Was there de-escalation of care discussed even if they declined (Discuss DNR or withdrawal of care, Hospice)? DNR status @ -no What co-morbidities impacted this encounter? (DM, HTN, Smoking, COPD, CAD, Cancer, CVA, ARF, Chemo, Hep., AIDS, mental health diagnosis, sleep apnea, morbid obesity)? @ -none Was patient admitted / discharged? Hospital course, mention meds given and route, prescriptions, significant lab abnormalities, going to OR and other pertinent info. @ - Undiagnosed new problem with uncertain prognosis? @ -no Drug Therapy requiring intensive monitoring for toxicity (Heparin, Nitro, Insulin, Cardizem)? @ -no Were any procedures done? @ -no Diagnosis/symptom? @ - Acute, or Chronic, or Acute on Chronic? @ -Acute Uncomplicated (without systemic symptoms) or Complicated (systemic symptoms)? @ -Complicated Side effects of treatment? @ -no Exacerbation, Progression, or Severe Exacerbation? @ -exacerbation Poses a threat to life or bodily function? How? (Chest pain, USA, IA, pneumonia, PE, COPD, DKA, ARF, appy, cholecystitis, CVA, Diverticulitis, Homicidal, Suicidal, threat to staff... and all critical care pts) @ -yes Reevaluation #5: Differential Dyspnea: Coronary syndrome, arrhythmia, tamponade, asthma, COPD, pulmonary embolism, pneumonia, pneumothorax, pulmonary effusion, anaphylaxis, diabetic ketoacidosis, flailed chest, pulmonary contusion, diaphragmatic rupture, anemia, n euromuscular, this is not meant to be an all-inclusive list. Medical Decision Making - Medical Decision Making 73 female to the ER for evaluation of upper respiratory infection. No acute findings here in the ER patient will be discharged home with cough medications and symptomatic therapy - Lab Data Lab Results 06/18/24 Range/Units 05:16 Influenza Type A (PCR) Not Detected (Not Detectd) Influenza Type B (PCR) Not Detected (Not Detectd) RSV (PCR) Not Detected (Not Detectd) SARS-CoV-2 (PCR) Not Detected (Not Detectd) - Radiology Data Radiology results: report reviewed (Chest x-ray is negative for acute disease), image reviewed Disposition Clinical Impression: Dizziness, Acute upper respiratory infection, Viral infection Disposition: HOME SELF-CARE Condition: Good Instructions (If sedation given, give patient instructions): Upper Respiratory Infection (ED) Prescriptions: Benzonatate [Tessalon Perles] 100 mg PO TID PRN #30 capsule PRN Reason: Cough Albuterol Inhaler [Ventolin Hfa Inhaler] 1 - 2 puff INHALATION Q6H PRN #1 each PRN Reason: Cough Is patient prescribed a controlled substance at d/c from ED?: No Referrals: Deandre Garcia MD [Primary Care Provider] - 1-2 days Time of Disposition: 06:30
[2024-06-18 06:12] LABS: Influenza A Not Detected (Not Detectd); Influenza B Not Detected (Not Detectd); RSV Not Detected (Not Detectd)
[2024-06-18] MEDS: BENZONATATE 100 MG CAP PO STA (06:12)
[2024-06-18] MEDS: ACETAMINOPHEN TAB 500 MG TAB PO STA (06:12)
[2024-06-18] MEDS: DEXAMETHASONE SOD PHOSPHATE 10 MG/ML 1 ML VIAL IM STA (06:13)
[2024-06-18] MEDS: ETODOLAC 400 MG TAB PO ONE (06:44)
[2024-06-18 06:46] VITALS: BP 128/79; PULSE 87; TEMP 97.8
--- NOTE | 2024-06-18 07:06 | XR ---
EXAMINATION TYPE: XR chest 2V DATE OF EXAM: 06/18/2024 5:29 AM COMPARISON: Chest radiographs from 07/03/2023 CLINICAL INDICATION: Female, 73 years old with history of cough; [facility] TECHNIQUE: XR chest 2V Frontal and lateral views of the chest. FINDINGS: Lungs/Pleura: There is no evidence of pleural effusion, focal consolidation, or pneumothorax. Pulmonary vascularity: Unremarkable. Heart/mediastinum: Cardiomediastinal silhouette is unremarkable. Atrial septal defect occlusion devic e present. Musculoskeletal: No acute osseous pathology. Midline sternotomy wires are noted. IMPRESSION: No acute cardiopulmonary disease/process. [facility], , 06/18/2024 7:03 AM [facility], , 06/18/2024 7:04 AM
== END 2024-06-18 06:44 | disposition home or self-care (01) ==
LOC: EC 05:01
DX: J06.9 Acute upper respiratory infection, unspecified (principal); R42 Dizziness and giddiness; B34.9 Viral infection, unspecified; Z88.2 Allergy status to sulfonamides; Z88.1 Allergy status to other antibiotic agents
CPT/HCPCS: 87636; 71046; 99283; 96372; J1100